=== PATIENT | female | born 1990 | race Caucasian/White ===

== ENCOUNTER 2020-08-10 09:22 | Outpatient (REF) | payer OTHER, SELFPAY | END 2020-08-10 09:23 | disposition home or self-care (01) | LOC: HO.LAB 09:22 | PROVIDERS: Visit Provider Internal Medicine | DX: Z20.828 Contact with and (suspected) exposure to other viral communicable diseases (principal) | CPT/HCPCS: C9803; U0003 ==

== ENCOUNTER 2020-11-30 11:38 | Emergency (ER) | payer OTHER, SELFPAY ==
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
[2020-11-30 11:49] VITALS: BP 106/76; PULSE 88; RESP 16; TEMP 36.9; O2SAT 98; BMI 23.6
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
[2020-11-30] MEDS: Acetaminophen 325 MG TABLET 650 MG PO (12:35)
== END 2020-11-30 14:18 | disposition home or self-care (01) ==
PROVIDERS: Emergency Provider Emergency Medicine Emergency Medical Services; PCP Internal Medicine Medical Oncology
DX: S06.0X0A Concussion without loss of consciousness, initial encounter (principal); S00.83XA Contusion of other part of head, initial encounter; V47.5XXA Car driver injured in collision with fixed or stationary object in traffic accident, initial encounter; W22.11XA Striking against or struck by driver side automobile airbag, initial encounter; Y93.89 Activity, other specified; Y92.414 Local residential or business street as the place of occurrence of the external cause; Y99.8 Other external cause status
CPT/HCPCS: 70450; 71046; 99283; 99284

== ENCOUNTER 2021-10-24 09:53 | Outpatient (REF) | payer OTHER, SELFPAY ==
[2021-10-25 12:24] LABS: BV Int Neg Control Negative (Negative); BV Int Pos Control Positive (Positive)
[2021-10-25 13:05] LABS: CT PCR NOT DETECTED (Not Detect.)
[2021-10-25 13:06] LABS: NG PCR NOT DETECTED (Not Detect.)
[2021-10-30 14:57] LABS: HPV mRNA E6/E7 rflx Not Detected (Not Detected)
== END 2021-10-24 09:54 | disposition home or self-care (01) ==
LOC: HO.LAB 09:53
PROVIDERS: Visit Provider Advanced Practice Midwife
DX: Z01.419 Encounter for gynecological examination (general) (routine) without abnormal findings (principal); Z11.51 Encounter for screening for human papillomavirus (HPV); Z20.2 Contact with and (suspected) exposure to infections with a predominantly sexual mode of transmission
CPT/HCPCS: 87480; 87491; 87510; 87591; 87624; 87660; 88142

== ENCOUNTER 2021-12-19 13:53 | Outpatient (REF) | payer OTHER, SELFPAY | END 2021-12-19 13:54 | disposition home or self-care (01) | LOC: HO.LAB 13:53 | PROVIDERS: Visit Provider Obstetrics & Gynecology | DX: R87.613 High grade squamous intraepithelial lesion on cytologic smear of cervix (HGSIL) (principal) | CPT/HCPCS: 57454; 81025; 88305 ==

== ENCOUNTER → 2022-01-13 15:58 | Outpatient (BNVA) | payer OTHER, SELFPAY | PROVIDERS: Visit Provider Obstetrics & Gynecology | DX: Z13.89 Encounter for screening for other disorder (principal) ==

== ENCOUNTER → 2022-01-28 14:43 | Outpatient (BNVA) | payer OTHER, SELFPAY | PROVIDERS: Visit Provider Obstetrics & Gynecology | DX: R87.613 High grade squamous intraepithelial lesion on cytologic smear of cervix (HGSIL) (principal) | CPT/HCPCS: 99212 ==

== ENCOUNTER 2022-01-31 09:03 | Day surgery (SDC) | payer OTHER, SELFPAY ==
--- NOTE | 2022-01-30 08:29 | HO.ANESPROP2 ---
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 (Acute) Past Medical History Medical History No known health problems Sinus problem Family History Family History Maternal Grandmother Heart disease Surgical History Surgical History Hx of arthroscopy of left knee Social History Social History Alcohol intake: current Alcohol intake frequency: a few times a week Patient Tobacco Use Status: Never used Tobacco Use of substances other than those prescribed or required for medical reasons: No Are you DNR?: No Advance Directives: No Advance Directives Information Provided: Yes Gender identity: Female Meds Allergies Allergy/AdvReac Type Severity Reaction Status Date / Time No Known Allergies Allergy Verified 01/24/22 13:50 Home Medications Medication Instructions Recorded Confirmed Last Taken Type No Known Home Meds 10/24/21 01/24/22 Unknown History Exam Exam Date and Time: January 30, 2022 0829 Assessment and Plan Assessment Anesthesia Assessment: Chart Reviewed Documented by User: Kalina Marques MD 01/31/22 10:46 PMFSH Past Medical History Medical History No known health problems Sinus problem Family History Family History Maternal Grandmother Heart disease Family history of problems with anesthesia: No Surgical History Surgical History Hx of arthroscopy of left knee History of Problems with Anesthesia: No Social History Social History Alcohol intake: current Alcohol intake frequency: a few times a week Patient Tobacco Use Status: Never used Tobacco Use of substances other than those prescribed or required for medical reasons: No Are you DNR?: No Advance Directives: No Advance Directives Information Provided: Yes Gender identity: Female Meds Allergies Allergy/AdvReac Type Severity Reaction Status Date / Time No Known Allergies Allergy Verified 01/24/22 13:50 Home Medications Medication Instructions Recorded Confirmed Last Taken Type No Known Home Meds 10/24/21 01/24/22 Unknown History Exam Height,Weight and Vital Signs: Height 5 ft 2 in Weight 57.606 kg Vital Signs Temp Pulse Resp BP Pulse Ox 01/31/22 09:37 97.8 F 91 18 109/77 96 Pertinent Lab Results Pertinent Lab Results: Lab Results 01/31/22 01/31/22 Range/Units 09:20 09:42 Urine Test NEGATIVE (NEGATIVE) COVID-19 (SELENE) Negative (Negative) COVID-19 Clin Com See Note Airway Mallampati Class: I TM Dist: >3cm Neck ROM: Full Loose/Missing/Broken Teeth: No Heart: RRR Lungs: CTAB Assessment and Plan Assessment Anesthesia Assessment: Anesthesia Plan Discussed Final Anesthetic Review Family History of Problems with Anesthesia: No History of Problems with Anesthesia: No NPO: Yes ASA Class: I Final Preanesthetic Review: No Changes in Pt Med Stat, Meds/Allgs Chart Reviewed, Consent Obtained/Reviewed and Anes Risks/Benef Reviewed Patient Risk: Low Procedure Risk: Low Assessment/Block/Sedation in SS: Assess/Block/Sedation-SS Anesthetic Plan Anesthetic Plan: MAC: Disposition: Standard PACU
[2022-01-31 09:37] VITALS: BP 109/77; PULSE 91; RESP 18; TEMP 36.6; O2SAT 96; BMI 23.2
--- NOTE | 2022-01-31 09:50 | PC.NURSE ---
Patient states COVID positive 01/15, had a headache that day and then everyday after i just felt tired and had alot of phlegm. I haven't had any symptoms since my quarantine ended[01/22]. Patient swabbed and anesthesia Dr Marques aware.
[2022-01-31 09:51] LABS: UPreg QC Valid YES; Urine Pregnancy NEGATIVE (NEGATIVE)
[2022-01-31] MEDS: Lactated Ringers 1,000 ML 50 ML IVCONT (09:58)
[2022-01-31 10:13] LABS: COVID-19 Test Negative (Negative); IDNOW Serial# 16C4AD1C
--- NOTE | 2022-01-31 10:50 | MHC.SHP ---
Pre-Procedural Eval Section A Date of Service: 01/31/22 The patient is an INPATIENT: No Changes since office visit: No Cold of Flu in the past 2 weeks, No New Medical Problems, No Changes in Medication and No Patient answered all questions The History & Physical has been completed within 30 days and I have reviewed it.: Yes Section B Chief Complaint: abd cervical cells Allergies: Allergies Allergy/AdvReac Type Severity Reaction Status Date / Time No Known Allergies Allergy Verified 01/24/22 13:50 Plan Diagnosis/Plan: Unchanged I have reviewed the history and physical and performed a pertinent physical examination on my patient. No changes have occurred unless specified.
--- NOTE | 2022-01-31 11:33 | P.BOP_ITS ---
Brief Operative Note Date of Service: 01/31/22 Pre-op diagnosis: Discrepancy between cytology, HGSIL, and negative pathology Post-op diagnosis: same Procedure: Colposcopy, LEEP cone, top hat endocervical excision, post cone ECC Surgeon: Zaki Avitia MD Anesthesia: MAC Was an Manager Account Management used for this Procedure?: No Estimated blood loss (mL): 0 Pathology: none sent (Cervical cone with 12:00 o'clock suture, top hat endocervix with 12:00 o'clock suture, cone ECC) Condition: stable Disposition: PACU
--- NOTE | 2022-01-31 11:34 | P.OP_ITS ---
Operative Note Operative Note Date of Service: 01/31/22 Narrative: Pre op diagnosis: Discrepancy between cytology, HGSIL, and negative pathology Operation: Colposcopy, Loop electrical excision procedure cone, top hat endocervical excision, post cone ECC Postop diagnosis: the same Quantitative blood loss: 0 cc Surgeon: Zaki Avitia MD, FACOG Digital Advertising Analyst: None Pathology: Cervical cone, top-hat endo cervical excision, endo cervical curettage Complications: none Anesthesia: MAC and Para cervical block Procedure: The patient was put in a dorsal lithotomy position, scrubbed and draped in the usual sterile fashion. A speculum was inserted inside the patient's vagina. The cervix is assessed using the colposcope with acetic acid , no aceto-white were seen, and the squamocolumnar junction was difficult to be visualized. 20 x 10 mm size loop was selected based upon the diameter of the lesion. Lugol solution was used to outline the lesions and area of the transformation zone order to be removed 10 cc of xylocaine with epinephrine were injected submucosally into the surface of the cervix (ectocervix) at the 3, 6, 9, and 12 o'clock positions. The electrosurgical generator is set at 40 anthony on blend 1. The loop is carefully passed simultaneously around and under the transformation zone, in order to ensure excising the transformation zone . The loop was allowed to glide through the cervix from one side to the other, allowing the cutting current to divide the tissue. Since the entire endo cervical canal /transformation zone was is not visualized well endo cervical disease could be beyond the reach of the loop loop electrode additional tissue was excised from this area with a smaller-diameter loop , endo cervical top-hat excision was performed. An endo cervical curettage is performed following completion of excision, and hemostasis is obtained with a Ball electrode or regular tip cautery. At the end, Monsel's solution was applied to the cone bed. The patient tolerated the procedure well and, all instruments were taken out of the patient vaginal cavity, and the patient was transferred to the PACU in stable condition.
[2022-01-31 11:37] VITALS: BP 105/62; PULSE 105; RESP 14; TEMP 36.6; O2SAT 98
[2022-01-31] MEDS: oxyCODONE HCl Immed Release 5 MG TABLET PO (11:48)
[2022-01-31] MEDS: Acetaminophen 325 MG TABLET 650 MG PO (11:49)
[2022-01-31 11:52] VITALS: BP 100/62; PULSE 90; RESP 16; TEMP 36.8; O2SAT 100
== END 2022-01-31 12:25 ==
LOC: HO.SSS 09:04
PROVIDERS: Anesthesiology; Visit Provider Obstetrics & Gynecology
PROC: 0UBC7ZZ Excision of Cervix, Via Natural or Artificial Opening (ICD-10-PCS; CPT 57522; principal; 2022-01-31 11:30)
DX: R87.613 High grade squamous intraepithelial lesion on cytologic smear of cervix (HGSIL) (principal); N72 Inflammatory disease of cervix uteri; Z20.822 Contact with and (suspected) exposure to COVID-19
CPT/HCPCS: 57461; 81025; 87635; 88305; 88307; J1100; J2250; J2405; J3010

== ENCOUNTER 2022-05-20 08:49 | Outpatient (REF) | payer OTHER, SELFPAY ==
[2022-05-20 10:27] LABS: MANUAL DIFF FLAG NO
[2022-05-20 10:46] LABS: Basophils Percent Auto 0.9 % (0-2); Eosinophils Absolute Auto 0.1 X10*3/uL (0.0-0.4); Eosinophils Percent Auto 2.4 % (0-4); Hematocrit 37.5 % (37.0-47.0); Hemoglobin 12.6 g/dl (12.0-16.0); Imm Gran Abs Auto 0.01 X10*3/uL (0.00-0.03); Imm Gran Pct Auto 0.2 % (0.0-0.4); Lymphocytes Percent Auto 43.1 % (20-40); Mean Corpuscular HGB Conc 33.6 g/dl (31.0-35.0); Mean Corpuscular Hemoglobin 30.4 pg (27.0-33.0); Mean Corpuscular Volume 90.6 fL (80.0-98.0); Mean Platelet Volume 10.4 fL (9.4-12.3); Monocytes Absolute Auto 0.4 X10*3/uL (0.1-1.2); Monocytes Percent Auto 7.7 % (2-11); Neutrophils Absolute Auto 2.1 x10*3/uL (2.0-8.3); Neutrophils Percent Auto 45.7 % (45-73); Platelet Count 283 X10*3/uL (160-400); Red Blood Count 4.14 X10*6/uL (4.20-5.50); Red Cell Distribution Width 12.3 % (11.0-16.0); White Blood Count 4.5 X10*3/uL (4.8-10.8)
[2022-05-20 11:01] LABS: Alanine Aminotransferase 17 U/L (0-31); Albumin Level 4.1 g/dL (3.5-5.0); Alkaline Phosphatase 40 U/L (39-117); Anion Gap 12 (12-20); Aspartate Amino Transferase 18 U/L (5-31); Blood Urea Nitrogen 15 mg/dL (9-16); Calcium 8.9 mg/dL (8.4-10.2); Carbon Dioxide 24 mmol/L (22-29); Chloride 105 mmol/L (96-108); Cholesterol 181 mg/dL; Estimated Glomerular Filt Rate > 60; Glucose Fasting 94 mg/dL (60-99); HDL Cholesterol 73 mg/dL; LDL Cholesterol Calculated 98 mg/dl; Potassium 4.4 mmol/L (3.3-5.1); Sodium 137 mmol/L (135-145); Total Protein 6.4 g/dL (6.5-8.0); Triglycerides 54 mg/dL
[2022-05-20 11:48] LABS: Folate 10.5 ng/mL (> or = 4.0); Vitamin B12 254 pg/mL (200-900)
== END 2022-05-20 08:50 | disposition home or self-care (01) ==
LOC: HO.10HDL 08:49
PROVIDERS: Visit Provider Internal Medicine Medical Oncology
DX: Z00.00 Encounter for general adult medical examination without abnormal findings (principal); E53.8 Deficiency of other specified B group vitamins
CPT/HCPCS: 36415; 80053; 80061; 82607; 82746; 85025

== ENCOUNTER 2023-04-30 05:20 | Outpatient (REF) | payer OTHER, SELFPAY ==
--- NOTE | ~2023-04-30 | XR_ITS ---
EXAMINATION: XR RIGHT HIP CLINICAL INFORMATION: Pain. COMPARISON: None available. TECHNIQUE: AP view of the pelvis and and frog-leg lateral view of the right hip were obtained. FINDINGS: No fracture. Hip joint spaces are maintained. Alignment is anatomic. Sacroiliac joints and pubic symphysis are normal. No abnormal soft tissue calcifications. There are pelvic phleboliths. XR/XR hip LT 1V IMPRESSION: Normal right hip radiographs. EXAMINATION: XR LEFT HIP CLINICAL INFORMATION: Pain. COMPARISON: None available. TECHNIQUE: A frog-leg lateral views of the left hip was obtained. FINDINGS: No fracture. Hip joint spaces are maintained. Alignment is anatomic. Sacroiliac joints and pubic symphysis are normal. No abnormal soft tissue calcifications. IMPRESSION: Normal left hip radiographs.
--- NOTE | ~2023-04-30 | XR_ITS ---
EXAMINATION: XR RIGHT HIP CLINICAL INFORMATION: Pain. COMPARISON: None available. TECHNIQUE: AP view of the pelvis and and frog-leg lateral view of the right hip were obtained. FINDINGS: No fracture. Hip joint spaces are maintained. Alignment is anatomic. Sacroiliac joints and pubic symphysis are normal. No abnormal soft tissue calcifications. There are pelvic phleboliths. XR/XR hip RT min 2V IMPRESSION: Normal right hip radiographs. EXAMINATION: XR LEFT HIP CLINICAL INFORMATION: Pain. COMPARISON: None available. TECHNIQUE: A frog-leg lateral views of the left hip was obtained. FINDINGS: No fracture. Hip joint spaces are maintained. Alignment is anatomic. Sacroiliac joints and pubic symphysis are normal. No abnormal soft tissue calcifications. IMPRESSION: Normal left hip radiographs.
== END 2023-04-30 05:21 | disposition home or self-care (01) ==
LOC: HO.HOSX 05:20
PROVIDERS: Visit Provider Orthopaedic Surgery
DX: M70.71 Other bursitis of hip, right hip (principal); M70.72 Other bursitis of hip, left hip
CPT/HCPCS: 73501; 73502; 99202

== ENCOUNTER 2023-04-30 11:23 | Outpatient (AMB) | payer OTHER, SELFPAY ==
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
== END 2023-04-30 12:36 | disposition home or self-care (01) ==
PROVIDERS: Visit Provider Orthopaedic Surgery
DX: M70.71 Other bursitis of hip, right hip (principal); M70.72 Other bursitis of hip, left hip
CPT/HCPCS: 99202

== ENCOUNTER 2023-10-05 14:30 | Outpatient (REF) | payer OTHER, SELFPAY ==
[2023-10-05 15:00] LABS: MANUAL DIFF FLAG NO
[2023-10-05 15:14] LABS: Basophils Percent Auto 0.9 % (0-2); Eosinophils Absolute Auto 0.2 X10*3/uL (0.0-0.4); Hematocrit 37.7 % (37.0-47.0); Hemoglobin 12.7 g/dl (12.0-16.0); Imm Gran Abs Auto 0.01 X10*3/uL (0.00-0.03); Imm Gran Pct Auto 0.2 % (0.0-0.4); Lymphocytes Absolute Auto 2.2 X10*3/uL (1.2-4.9); Lymphocytes Percent Auto 45.7 % (20-40); Mean Corpuscular HGB Conc 33.7 g/dl (31.0-35.0); Mean Corpuscular Volume 89.1 fL (80.0-98.0); Mean Platelet Volume 9.7 fL (9.4-12.3); Monocytes Absolute Auto 0.3 X10*3/uL (0.1-1.2); Monocytes Percent Auto 6.6 % (2-11); Neutrophils Percent Auto 42.6 % (45-73); Platelet Count 290 X10*3/uL (160-400); Red Blood Count 4.23 X10*6/uL (4.20-5.50); Red Cell Distribution Width 12.1 % (11.0-16.0); White Blood Count 4.7 X10*3/uL (4.8-10.8)
[2023-10-05 15:41] LABS: Anion Gap 12 (12-20); Blood Urea Nitrogen 13 mg/dL (9-16); Calcium 9.7 mg/dL (8.4-10.2); Carbon Dioxide 25 mmol/L (22-29); Chloride 107 mmol/L (96-108); Cholesterol 184 mg/dL (<200); Estimated Glomerular Filt Rate > 60; Glucose Random 103 mg/dL (60-115); HDL Cholesterol 70 mg/dL (>40); LDL Cholesterol Calculated 101 mg/dL (<100); Potassium 4.5 mmol/L (3.3-5.1); Sodium 139 mmol/L (135-145); Triglycerides 65 mg/dL (<150)
[2023-10-05 15:53] LABS: Erythrocyte Sedimentation Rate 12 MM/HR (0-20)
== END 2023-10-05 14:31 | disposition home or self-care (01) ==
LOC: HO.LAB 14:30
PROVIDERS: PCP Internal Medicine Medical Oncology; Visit Provider Internal Medicine Medical Oncology
DX: R10.9 Unspecified abdominal pain (principal); R19.7 Diarrhea, unspecified
CPT/HCPCS: 36415; 80048; 80061; 85025; 85652

== ENCOUNTER 2023-10-07 10:38 | Outpatient (REF) | payer OTHER, SELFPAY ==
[2023-10-07 11:37] LABS: CDiff Gene PCR NEGATIVE (Negative)
== END 2023-10-07 10:39 | disposition home or self-care (01) ==
LOC: HO.LNP 10:38
PROVIDERS: Visit Provider Internal Medicine Medical Oncology
DX: R10.9 Unspecified abdominal pain (principal); R19.7 Diarrhea, unspecified
CPT/HCPCS: 87493

== ENCOUNTER 2023-10-28 12:40 | Day surgery (SDC) | payer OTHER, SELFPAY ==
[2023-10-22 13:03] VITALS: BMI 24.6
[2023-10-28 12:56] VITALS: BP 130/78; PULSE 94; RESP 16; TEMP 37.2; O2SAT 100; BMI 24.7
[2023-10-28 13:04] LABS: UPreg QC Valid YES; Urine Pregnancy NEGATIVE (NEGATIVE)
--- NOTE | 2023-10-28 13:13 | P.CONAN_ITS ---
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 (Acute) Potential exposure to STD (Acute) Cervical cancer screening (Acute) Well woman exam with routine gynecological exam (Acute) Past Medical History Medical History (Updated 10/22/23 @ 13:02 by Flores Case RN) No known health problems Family History Family History Maternal Grandmother Heart disease Family history of problems with anesthesia: No Surgical History Surgical History History of loop electrical excision procedure (LEEP) Hx of arthroscopy of left knee History of Problems with Anesthesia: No Social History Social History (Updated 10/22/23 @ 13:03 by Flores Case RN) Alcohol intake: current Alcohol intake frequency: 0-2 drinks per day Patient Tobacco Use Status: Current someday Tobacco user Tobacco use type: Cigarette Smoked in Last 30 Days: Yes Use of substances other than those prescribed or required for medical reasons: Yes Substance Use Frequency: Daily Are you DNR?: No Advance Directives: No Advance Directives Information Provided: Yes Gender identity: Female Meds Allergies Allergy/AdvReac Type Severity Reaction Status Date / Time No Known Allergies Allergy Verified 10/28/23 12:49 Home Medications Medication Instructions Recorded Confirmed Last Taken Type ibuprofen PRN Pain 10/28/23 10/14/23 History Exam Height,Weight and Vital Signs: Height 5 ft 2 in Weight 61.235 kg Last Vital Signs Temp 98.9 F 10/28/23 12:56 Pulse 94 10/28/23 12:56 Resp 16 10/28/23 12:56 BP 130/78 10/28/23 12:56 Pulse Ox 100 10/28/23 12:56 O2 Del Method Room Air 10/28/23 12:56 Pertinent Lab Results Pertinent Lab Results: Laboratory Tests 10/28/23 12:53 Urine Test NEGATIVE Airway Mallampati Class: I TM Dist: >3cm Neck ROM: Full Loose/Missing/Broken Teeth: No Heart: rrr Lungs: cta b/l Assessment and Plan Final Anesthetic Review Family History of Problems with Anesthesia: No History of Problems with Anesthesia: No NPO: Yes ASA Class: II Final Preanesthetic Review: No Changes in Pt Med Stat, Meds/Allgs Chart Reviewed, Consent Obtained/Reviewed and Anes Risks/Benef Reviewed Patient Risk: Intermediate Procedure Risk: Intermediate Anesthetic Plan Anesthetic Plan: MAC:
--- NOTE | 2023-10-28 14:41 | MHC.SHP ---
Pre-Procedural Eval Section A - 24 Hr Update-Section A only Date of Service: 10/28/23 The patient is an INPATIENT: No Changes since office visit: No Cold of Flu in the past 2 weeks, No New Medical Problems, No Changes in Medication and No Patient answered all questions The patient has been examined within 24 hours of the surgical procedure. The History & Physical has been completed within 30 days and I have reviewed it.: Yes Section B - Complete if H&P > 30 days Chief Complaint: Change in bowel habit,rectal bleeding Allergies: Allergies Allergy/AdvReac Type Severity Reaction Status Date / Time No Known Allergies Allergy Verified 10/28/23 12:49 Plan I have reviewed the history and physical and performed a pertinent physical examination on my patient. No changes have occurred unless specified. Time Spent With Patient Time: Total time managing care of this patient today ____ minutes.
[2023-10-28 15:11] VITALS: BP 95/48; PULSE 78; RESP 18; TEMP 36.3; O2SAT 99
[2023-10-28 15:26] VITALS: BP 108/74; PULSE 82; RESP 20; TEMP 36.4; O2SAT 99
--- NOTE | 2023-10-28 16:05 | OP_ITS ---
DATE OF SERVICE: 10/28/2023 SURGEON: Alcides Roa MD INDICATIONS: Rectal bleeding and change in bowel habits. PREOPERATIVE DIAGNOSIS: POSTOPERATIVE DIAGNOSIS: PROCEDURE PERFORMED: Colonoscopy to the terminal ileum with biopsy. ESTIMATED BLOOD LOSS: COMPLICATIONS: ANESTHESIA: Monitored anesthesia care. ASSISTANTS: SPECIMENS: DESCRIPTION OF PROCEDURE: A history and physical performed. The risks and benefits of the procedure were explained to the patient. Informed consent was obtained. The patient was placed in the left lateral decubitus position. The Olympus video colonoscope was introduced into the rectum. After normal digital rectal examination was performed, the Olympus scope was advanced to the cecum. The cecum was identified by transillumination, palpation, and identification of ileocecal valve. Examination was performed. The scope was removed. She tolerated the procedure well and was returned to recovery area in stable condition. FINDINGS: The terminal ileum was examined and appeared normal. The visualized colonic mucosa was normal. The quality of the prep was great. No polyps were identified. There was no evidence of colitis. There was no evidence of ileitis. Biopsies were obtained from the sigmoid randomly to rule out microscopic or collagenous colitis. Retroflexed examination was normal. IMPRESSION: Normal colonoscopy. RECOMMENDATION: 1. Follow up the biopsy results. 2. Screening colonoscopy should begin at age 45 every 10 years for average-risk individuals. MD ARIC Shrestha/ARDEN / [phone]
== END 2023-10-28 15:39 | disposition home or self-care (01) ==
PROVIDERS: Anesthesiology; PCP Internal Medicine Medical Oncology; Visit Provider Internal Medicine Gastroenterology
PROC: 0DJD8ZZ Inspection of Lower Intestinal Tract, Via Natural or Artificial Opening Endoscopic (ICD-10-PCS; CPT 45378; principal; 2023-10-28 13:50)
DX: R19.4 Change in bowel habit (principal); K62.5 Hemorrhage of anus and rectum; F17.210 Nicotine dependence, cigarettes, uncomplicated
CPT/HCPCS: 45380; 81025; 88305; J2704

== ENCOUNTER 2024-05-23 14:18 | Emergency (ER) | payer OTHER, SELFPAY ==
--- NOTE | ~2024-05-23 | XR_ITS ---
EXAMINATION: XR CHEST CLINICAL INFORMATION: Left-sided chest pain. COMPARISON: January 30, 2021 TECHNIQUE: 2 views of the chest were obtained. FINDINGS: The lungs are well expanded. No focal consolidation. No pleural effusion. Cardiac silhouette is within normal limits. XR/XR chest 2V IMPRESSION: No acute abnormality. Electronically signed by: Sher Esqueda MD 05/23/2024 03:55 PM EDT
--- NOTE | 2024-05-23 14:19 | ECG_ITS ---
Test Reason : CHEST PAIN Blood Pressure : / mmHG Vent. Rate : 080 BPM Atrial Rate : 080 BPM P-R Int : 136 ms QRS Dur : 084 ms QT Int : 378 ms P-R-T Axes : 065 058 038 degrees QTc Int : 435 ms Normal sinus rhythm Normal ECG No previous ECGs available Referred By: Ely Leslie Electronically Signed By:THERESE PETERSON
[2024-05-23 14:31] VITALS: BP 133/91; PULSE 84; RESP 20; TEMP 37.2; O2SAT 100; BMI 23.0
--- NOTE | 2024-05-23 14:31 | ED.CHESTPAIN ---
HPI - Chest Pain General Chief Complaint: Chest Pain Stated Complaint: Chest Pain Time Seen by Provider: 05/23/24 15:19 Source: patient and family Mode of arrival: ambulatory Limitations: no limitations History of Present Illness ED Provider: NURA BURRIS narrative: 33 yo female who vapes here with chest pain and feeling like she cannot catch her breath. Notes hx of anxiety but not on medications. No recent travel, procedures, URI, vaccines. Notes she just feels like she cannot catch her breath. She notes she feels like she cannot catch her breath. She is anxious and tearful. The patient notes it all started on Thursday [place]. She does not have any known hx of anything. Patient is with her family no konwn hx of heart issues or dissections. Patient states she just cannot catch her breath MD complaint: chest pain Onset (ago): day(s) (Thursday) Timing of current episode: episodic Prior episodes: No Onset: during rest Pain location: left chest Pain radiation: none Severity: moderate Quality: aching Relieving factors: nothing Exacerbating factors: inspiration Associated symptoms: dyspnea, sense of impending doom and palpitations Treatment prior to arrival: none Related Data Home Medications ?Medication ?Instructions ?Recorded ?Confirmed ibuprofen PRN Pain 10/28/23 Previous Rx's ?Medication ?Instructions ?Recorded hydroxyzine HCl 50 mg tablet 50 mg PO Q8H PRN anxiety #30 tabs 05/23/24 Allergies Allergy/AdvReac Type Severity Reaction Status Date / Time No Known Allergies Allergy Verified 05/23/24 14:34 Review of Systems Review of Systems: Constitutional : No Weight loss, No Fever, No Chills ENT/Mouth : No sore throat, No Rhinorrhea Eyes: No Eye Pain, No Swelling Cardiovascular : pos Chest Pain, pos SOB, no Dyspnea on Exertion, No Orthopnea, No Edema, No Palpitations Respiratory : No Cough, No Sputum Gastrointestinal : no Nausea, No Vomiting, No Diarrhea, No abdominal Pain, No Hematochezia, No Melena Genitourinary : No Dysuria, No Urinary Frequency Musculoskeletal : No joint pain, No Myalgias, No Joint Swelling Skin : No Skin Lesions, No rash Neuro : No Weakness, No Numbness, No Dizziness, No Headache Psych : No Anxiety/Panic, No Depression All other systems reviewed and are negative FOR[facility]LY [facility], [facility] Past Medical History Attestation statement: The following information was validated with the patient. Medical History No known health problems Surgical History History of loop electrical excision procedure (LEEP) Hx of arthroscopy of left knee Family History Family History Maternal Grandmother Heart disease Social History Social History Alcohol intake: current Alcohol intake frequency: 0-2 drinks per day Patient Tobacco Use Status: Current someday Tobacco user Tobacco use type: Cigarette Gender identity: Female Physical Exam Vital Signs: Vital Signs: Last Vital Signs Temp 98.2 F 05/23/24 15:30 Pulse 77 05/23/24 15:30 Resp 22 H 05/23/24 15:30 BP 124/73 05/23/24 15:30 Pulse Ox 100 05/23/24 15:30 O2 Del Method Room Air 05/23/24 15:30 BMI result Body Mass Index 23.0 Appearance: Alert. Oriented X3. No acute distress. appears anxious tearful mild hyperventilation Eyes: Pupils equal, round and reactive to light. ENT: Pharynx normal. Neck: Normal inspection. Neck supple. CVS: Normal heart rate and rhythm. Pulses normal. Respiratory: No respiratory distress. Breath sounds normal. Abdomen: Soft and non-tender. Skin: Skin warm and dry. Normal skin color. Normal skin turgor. Extremities: No lower extremity edema. No calf ttp Neuro: Oriented X 3. No motor deficit. No sensory deficit. Course Course Course Narrative: This is a Rapid Medical Examination (RME) performed by Cassandra Leslie PA-C in triage. Full HPI, ROS, assessment and treatment plan per primary provider in the Main ED. 33 yo female here for eval of light headedness, rapid heart rate and difficulty breathing x weeks. admits chest pain began 4 days ago. reports getting [place] yesterday, felt like her heart was going to beat out of her chest, checked her pulse and it was the 150's. reports sharp pain in her left chest, radiating to her back and pulsating sensation in her neck. hx of anxiety/ panic attacks however this feels different. admits to vaping daily. + very anxious in triage. tremulous. lungs clear. rrr. Plan: labs, ekg, cxr Medications Administered Discontinued Medications Generic Name Dose Route Start Last Admin Trade Name Rogelio PRN Reason Stop Dose Admin Lorazepam 1 mg 05/23/24 15:40 05/23/24 15:55 Lorazepam 1 Mg Tablet PO 05/23/24 15:41 1 mg ONCE ONE Administration Medical Decision Making Medical Decision Making [facility] Narrative: 33 yo female with hx of anxiety, vapes, not on OCPs or medications at this time will need EKG, CXR for PTX/mass/infection, troponin x 1, ddimer given her HR in 150s. The patient is not toxic appearing she has distal pulses intact doubt dissection. She is hyperventilating on exam. No fam hx of dissections reported. PO ativan for anxiety ordered. If negative work up will DC home. No recent infectious complaints, travel, vaccines. Not related to recent URI and not worse with sitting forward doubt pericarditis Differential Diagnosis Differential Diagnoses: The differential diagnosis associated with the presentation includes atypical chest pain, VTE, anxiety, MSK pain, no risk factors for ACS Admission/Observation Consideration of admission/observation: Escalation of care including admission/observation considered CXR negative trop flat ddimer flat EKG nonischemic stable for outpatient management Lab Data [facility] Lab Attestation statement: I reviewed the patient's lab results. 05/23/24 15:47 05/23/24 15:47 Independent Interpretation I performed an independent interpretation of an: EKG and Plain X-Ray (normal) Interpretation: Rate: Rhythm: Beverly: Normal P waves. Normal DEBBIE. Normal QRS complex. ST T wave : qTC: prior studies: The study has been interpreted contemporaneously by me. . Independent Historian Clinical information obtained from an independent historian. History obtained from or confirmed by: Parent External Record Review External record reviewed: Outpatient record Prescription Management I considered prescription management with: Other Discharge Plan Discharge Clinical Impression: Atypical chest pain, Acute dyspnea Patient Disposition: Home, Self-Care Instructions: Chest Pain (ED), Dyspnea (ED) Additional Instructions: today work up including normal testing no anemia normal kidney function O2 sats 100% EKG reassuring test for heart attack troponin negative negative blood clot test CXR normal please return for any worsening symptoms or concerns will start a medication to see if this improves any of your symptoms follow up with your doctor anxiety med is sedating please refrain from operating heavy machinery while taking it EXAMINATION: XR CHEST CLINICAL INFORMATION: Left-sided chest pain. COMPARISON: January 30, 2021 TECHNIQUE: 2 views of the chest were obtained. FINDINGS: The lungs are well expanded. No focal consolidation. No pleural effusion. Cardiac silhouette is within normal limits. XR/XR chest 2V IMPRESSION: No acute abnormality. Prescriptions: New hydroxyzine HCl 50 mg tablet 50 mg PO Q8H PRN (Reason: anxiety) Qty: 30 0RF No Action ibuprofen PRN (Reason: Pain) Stand Alone Forms: Work/School Release Print Language: Japanese
[2024-05-23 15:30] VITALS: BP 124/73; PULSE 77; RESP 22; TEMP 36.8; O2SAT 100
[2024-05-23 15:52] LABS: MANUAL DIFF FLAG NO
[2024-05-23] MEDS: LORazepam 1 MG TABLET PO (15:55)
--- NOTE | 2024-05-23 15:58 | PC.NURSE ---
Pt comes from home for cp/lightheadedness starting Thursday. Pt states she felt a sharp pain mid chest that went straight to her back. She no longer feels the pain she feels more of a pressure/palpitation sensation. Pt visibly anxious upon arrival, stating she feels lightheaded and that her hands hurt. States she has had anxiety attacks like this in the past, is not taking any medication for this. A/ox4, respirations even and unlabored, no increased wob/sob, lung sounds cta bilaterally, s1 and s2 heard, NSR on color television console monitor, HR 70s, abdomen soft, non-tender on palpation. Pt medicated with 1mg PO ativan, pending effectiveness. EKG obtained, labs pending, family at bedside. Call manning within reach, all needs met at this time.
[2024-05-23 15:59] LABS: Prothrombin Time 11.6 SEC (11.1-13.3)
[2024-05-23 16:03] LABS: D Dimer High Sensitivity < 150 NG/ML
--- OUTSIDE RECORDS SUMMARY | 2024-05-23 16:04 | XMS_ITS ---
Author Organization [facility] Address [address] [place] [id number] Care Team Providers Care License Clerk Name Role Phone Dustin Maguire MD Primary Care Provider UnavailAlcides Saha Jr Unavailable [phone] 2 ALLERGIES No Known Allergies REASON FOR VISIT Patient presents today for a severe abdominal pain, diarrhea, blood in stool MEDICATIONS Medication SIG (Take, Route, Frequency, Duration) Notes Start Date End Date Status MiraLax (colon prep) 17 GM/SCOOP mixed with Gatorade or Crystal Light Orally begin at 5:00 p.m. the day before the procedure for 1 day 10/12/2023 Active IMMUNIZATIONS Vaccine Route Administration Date Status Comme nts Influenza Unknown 10/12/2023 Refused SOCIAL HISTORY Tobacco Use: Social History Observation Description Date Details (start date - stop date) Current Smoker NA - NA Sex Assigned At : Social History Observation Description Sex Assigned At Unknown Tobacco Use/Smoking Question Answer Notes Patient is a current smoker Alcohol Screen Question Answer Notes Did you have a drink contain ing alcohol in the past year? Yes How often did you have a dri nk containing alcohol in the past year? 2 to 4 times a month (2 points) How many drinks did you have on a typical day when you were drinking in the past year? 3 or 4 drinks (1 point) How often did you have 6 or more drinks on one occasion in the past year? Never (0 point) Points 3 Interpretation Positive PROBLEMS Problem Type ICD Code Onset Dates Problem Status W/U Status Risk SNOMED Code Notes Problem Rectal bleeding (K62.5) Active confirmed 51055365 Problem Change in bowel movement (R19.8) Active confirmed 98495855 VITAL SIGNS BMI 24.57 kg/m2 10/12/2023 Blood pressure systolic 000 mm Hg 10/12/19 24 Blood pressure diastolic 00 mm Hg 024 Height 5 ft 2 in in 10/12/2023 Temperature 99.1 degrees Fahrenheit 10/12/19 24 Weight 134 lb 6 oz lbs 10/12/2023 Encounters Encounter Location Date Provider Diagnosis [facility] [address] [place] [address] 10/12/2023 Alcides Roa Jr Rectal bleeding K62.5 and Change in bowel movement R19.8 ASSESSMENTS Encounter Date Diagnosis Assessment Notes Treatment Notes Treatment Clinical Notes 10/12/2023 Rectal bleeding (ICD-10 - K62.5) 10/12/2023 Change in bowel movement (ICD-10 - R19.8) PLAN OF TREATMENT Medication Medication Name Sig Start Date Stop Date Notes MiraLax (colon prep) 17 GM/SCOOP mixed with Gatorade or Crystal Light Orally begin at 5:00 p.m. the day before the procedure for 1 day 10/12/2023 Future Test Test Name Order Date COLONOSCOPY 10/12/2023 Next Appt Details Follow Up: 1 Year, Reason: Progress Notes * Examination Category Sub-Category Detail Notes General Examination GENERAL APPEARANCE: in no ac [place] distress HEAD: normocephalic EYES: sclera non-icteric NECK/THYROID: no lymphadenopathy HEART: S1, S2 normal, no mu rmurs CHEST: normal shape and exp ansion LUNGS: clear to auscultatio n bilaterally ABDOMEN: soft, nontender, non distended, bowel sounds present, no organomegaly SKIN: anicteric EXTREMITIES: no clubbing, cyanosi s, or edema PSYCH: cognitive function i ntact ORAL CAVITY: mucosa moist
--- OUTSIDE RECORDS SUMMARY | 2024-05-23 16:04 | XMS_ITS ---
Author Organization Dustin Maguire III, MD Address [address] [place] [address] [place] [address] Care Team Providers Care Warehouse Processor Name Role Phone Dustin Maguire Primary Care Provider [phone] REASON FOR VISIT Rapid palpitations x 4 days, Feeling light head, Dizzy, SOB, body shakes. SOCIAL HISTORY Sex Assigned At : Social History Observation Description Sex Assigned At Female VITAL SIGNS BMI 23.04 kg/m2 05/23/2024 Blood pressure systolic 128 mm Hg 05/23/20 24 Blood pressure diastolic 70 mm Hg 024 Heart Rate 94 /min 05/23/2024 Height 62 in 05/23/2024 Temperature 97.3 degrees Fahrenheit 05/23/20 24 Weight 126 lbs 05/23/2024 Encounters Encounter Location Date Provider Diagnosis Dustin Maguire III, MD [address] [place] [address] [place] [phone] 05/23/2024 Dustin Maguire PLAN OF TREATMENT Next Appt Details Provider Name:Dustin Maguire, 06/23/2024 09:45:00 AM, [address] [place] [address] [place], [phone], Progress Notes * Examination Category Sub-Category Detail Notes General Examination GENERAL APPEARANCE: pleasant , well nourished, well developed, in no acute distress, calm and relaxed HEAD: atraumatic, normocep halic EYES: eomi, perrla, anicte harleen, conjugate EARS: normal NOSE: septum intact NECK/THYROID: no jugular venous di stention, no carotid bruit, thyroid normal HEART: no clicks, gallops, murmurs, or rubs, regular rhythm, S1, S2 normal, no s3, or vascular bruits LUNGS: clear to auscultatio n ABDOMEN: bowel sounds normal, no ascites, no organomegaly, no mass NEUROLOGIC: alert and oriented, cranial nerves 2-12 grossly intact, deep tendon reflexes 2+ symmetrical, motor strength normal upper and lower extremities, sensory exam intact SKIN: no suspicious lesion s, anicteric PERIPHERAL PULSES: normal BREASTS: no masses palpable b ilaterally MUSCULOSKELETAL: extremities unremark able, no clubbing, cyanosis or edema LYMPH NODES: no enlarged lymph no sera,spleen normal RECTAL EXAM: not examined PSYCH: alert, oriented ORAL CAVITY: normal, unremarkable History and Physical Notes * HPI (History of Present Illness) Category Sub-Category Detail Notes COVID-19 Screening Questions Have you expe rienced fever, chills, cough, sore throat, shortness of breath, difficulty breathing, muscle aches, loss of taste or smell?: No Have you been exposed to the virus with n the last 10 days?: No Have you travelled internationally in e last 10 days?: No Have you been exposed to COVID-19 in the past?: Yes
--- OUTSIDE RECORDS SUMMARY | 2024-05-23 16:04 | XMS_ITS | Patient Health Record ---
Author Organization [facility] Address [address] [place] [address] Care Team Providers Care Automobile Radio Repairer Name Role Phone Ting VEGA, Dustin Primary Care Provider Alcides Alicea Jr Unavailable [phone] ALLERGIES No Known Allergies RESULTS Component Value Reference Range Notes Ur Preg Test Reviewed date:10/28/2023 04:06:46 PM Interpretation: Performing Lab:[facility], [address] [place] [phone] Notes/Report: Urine NEGATIVE NEGATIVE This test was developed to detect early . False negative results may occur after the 5th - 7th week of when using this test method. If clinically indicated, consider a serum hCG. Pathology Reviewed date:11/02/2023 08:20:05 AM Interpretation: Performing Lab:[facility], [address] [place] [phone] Notes/Report: REASON FOR REFERRAL No Information MEDICATIONS Medication SIG (Take, Route, Frequency, Duration) [...] Notes Problem Rectal bleeding (K62.5) Active confirmed 99912213 Problem Change in bowel movement (R19.8) Active confirmed [id number] VITAL SIGNS Temperature 99.1 degrees Fahrenheit 10/12/2023 Blood pressure diastolic 00 mm Hg 10/12/2023 Height 5 ft 2 in in 10/12/2023 Blood pressure systolic 000 mm Hg 10/12/2023 Weight 134 lb 6 oz lbs 10/12/2023 BMI 24.57 kg/m2 10/12/2023 Encounters Encounter Location Date Provider Diagnosis [facility] [address] [place] [phone] 10/28/2023 Alcides Roa Jr Rectal bleeding K62.5 and Change in bowel movement R19.8 [facility] [address] [place] [phone] 10/12/2023 Alcides Roa Jr Rectal bleeding K62.5 and Change in bowel movement R19.8 [facility] [address] [place] [phone] 10/09/2023 Alcides Roa Jr [facility] [address] [place] [phone] 11/02/2023 Alcides Roa Jr ASSESSMENTS Encounter Date Diagnosis Assessment Notes Treatment Notes Treatment Clinical Notes 10/28/2023 Rectal bleeding (ICD-10 - K62.5) 10/28/2023 Change in bowel movement (ICD-10 - R19.8) 10/12/2023 Rectal bleeding (ICD-10 - K62.5) 10/12/2023 Change in bowel movement (ICD-10 - R19.8) PLAN OF TREATMENT Future Test Test Name Order Date COLONOSCOPY 10/12/2023 Insurance Providers Payer Name Payer Address Payer Phone Subscriber Number Group Number Insured Name Patient Relationship to Insured Coverage Start Date Coverage End Date [facility] [address] [place], [place] [id number] [address] [phone] [id number] NOLA MEZA Self - patient is the insured MEDICAL (GENERAL) HISTORY Surgical History Surgery Date(Month/Year) Arthroscopy/synovectomy, left knee 2011 [facility] 01/26
--- OUTSIDE RECORDS SUMMARY | 2024-05-23 16:04 | XMS_ITS ---
Author Organization Dustin Maguire III, MD Address [address] [place] [address] [place] [address] Care Team Providers Care Network Systems Engineer Name Role Phone Dustin Maguire Primary Care Provider ALLERGIES Allergen (clinical drug ingredient) Drug/Non Drug Allergy documented on EMR Reaction Allergy Type Onset Date Status Adhesive Unknown Allergy Active REASON FOR VISIT Abdominal pain, Recent hematochezia SOCIAL HISTORY Tobacco Use: Social History Observation Description Date Details (start date - stop date) Former Smoker NA - NA Sex Assigned At : Social History Observation Description Sex Assigned At Female Tobacco Use/Smoking Question Answer Notes Patient is a former smoker How long has it been since y ou last smoked? 6-12 months Additional Findings: Tobacco User Light cigarett e smoker ((1-9 cigs/day) Additional Findings: Tobacco Non-User Current no n-smoker VITAL SIGNS BMI 25.24 kg/m2 10/29/2023 Height 62 in 10/29/2023 Weight 138 lbs 10/29/2023 Encounters Encounter Location Date Provider Diagnosis Dustin Maguire III, MD [address] [place] [address] [place] [address] 10/29/2023 Dustin Maguire Former smoker Z87.89 1 ; Abdominal pain R10.9 ; Trochanteric bursitis M70.60 and Synovial plica of left knee M67.52 ASSESSMENTS Encounter Date Diagnosis Assessment Notes Treatment Notes Treatment Clinical Notes 10/29/2023 Former smoker (ICD-10 - Z87.891) She no longer smokes cigarettes. She seems highly motivated to remain abstinent. 10/29/2023 Abdominal pain (ICD-10 - R10.9) The colonoscopy was unremarkable. She has had no further bleeding. She continues to have intermittent crampy abdominal pain. We are awaiting the biopsies done randomly in the colon. 10/29/2023 Trochanteric bursitis (ICD-10 - M70.60) She was referred to orthopedics to try an injection. She will use ibuprofen and a heating pad until then. 10/29/2023 Synovial plica of left knee (ICD-10 - M67.52) She had surgery in the past for this problem which is now resolved. Both kidneys are functioning normally and without complaint. The surgery was done at [facility] by Dr. Flor. PLAN OF TREATMENT Next Appt Details Follow Up: 6 Weeks, Reason: Office visit Provider Name:Dustin Ronquillone, 06/23/2024 09:45:00 AM, [address] [place] [address], [facility] [address], [place], [address], History and Physical Notes * HPI (History of Present Illness) Category Sub-Category Detail Notes [facility]:: {...} [address] [place] [address] [address] [facility] [address] Location of patient:: address listed in demographics for today's visit Patient identification confirmed using:: Name, Telehealth method:: Telephone only. Cecilia ent not visible to care provider. Consent:: Patient verbally c onsented to treatment, Patient verbally consented to billing insurance company, Patient informed of any privacy concerns related to method of visit Total time spent with patient (mins): 15
--- OUTSIDE RECORDS SUMMARY | 2024-05-23 16:04 | XMS_ITS ---
Author Organization Dustin Maguire III, MD Address [address] [place] [address] [place] [address] Care Team Providers Care Geneticist Name Role Phone Dustin Maguire Primary Care Provider [phone] ALLERGIES Allergen (clinical drug ingredient) Drug/Non Drug Allergy documented on EMR Reaction Allergy Type Onset Date Status Adhesive Unknown Allergy Active REASON FOR VISIT annual exam SOCIAL HISTORY Tobacco Use: Social History Observation [...] Additional Findings: Tobacco Non-User Current no n-smoker Encounters Encounter Location Date Provider Diagnosis Dustin Maguire III, MD [address] [place] [address] [place] [address] 01/20/2024 Dustin Maguire PLAN OF TREATMENT Next Appt Details Provider Name:Dustin Maguire, 06/23/2024 09:45:00 AM, [address] [place] [address] [place], [address], Progress Notes * Examination Category Sub-Category Detail [...] been exposed to COVID-19 in the past?: No
--- OUTSIDE RECORDS SUMMARY | 2024-05-23 16:04 | XMS_ITS | Patient Health Record ---
Author Organization Dustin Maguire III, MD Address [address] [place] [address] [place] [address] Care Team Providers Care Hand Inserter Operator Name Role Phone Dustin Maguire Primary Care Provider ALLERGIES Allergen (clinical drug ingredient) Drug/Non Drug Allergy documented on EMR Reaction Allergy Type Onset Date Status Adhesive Unknown Allergy Active RESULTS Component Value Reference Range Notes Lipid Panel Reviewed date:10/09/2023 09:37:38 AM Interpretation: Performing Lab:[facility], [address] [place] [phone] Notes/Report: Triglycerides 65 <150 mg/dL Desirable Triglyceride: less than 150 mg/dL Borderline High Triglyceride 150-199 mg/dL High Triglyceride: 200-499 mg/dL Very High Triglyceride: greater than or equal to 5OO mg/dL Cholesterol 184 <200 mg/dL Desirable Cholesterol: less than 200 mg/dL Borderline High Cholesterol: 200-239 mg/dL High Cholesterol: greater than 239 mg/dL LDL Cholesterol Calculated 101 <100 mg/dL Desirable LDL: less than 100 mg/dL Near Optimal/Above Optimal LDL: 110-129 mg/dL Borderline High LDL: 130-159 mg/dL High LDL: 160-189 mg/dL Very High LDL: greater than or equal to 190 mg/dL HDL Cholesterol 70 >40 mg/dL Desirable HDL: greater than 40 mg/dL Note: This HDL assay may give artificially low results in patients with liver disease. Complete Blood Count Auto Di ff Reviewed date:10/09/2023 09:37:38 AM Interpretation: Performing Lab:[facility], [address] [place] [phone] Notes/Report: White Blood Count 4.7 4.8-10.8 X10*3/uL Red Blood Count 4.23 4.20-5.50 X10*6/uL Hemoglobin 12.7 12.0-16.0 g/dl Hematocrit 37.7 37.0-47.0 % Mean Corpuscular Volume 89.1 80.0-98.0 fL Mean Corpuscular Hemoglobin 30.0 27.0-33.0 pg Mean Corpuscular HGB Conc 33.7 31.0-35.0 g/dl Red Cell Distribution Width 12.1 11.0-16.0 % Platelet Count 290 160-400 X10*3/uL Mean Platelet Volume 9.7 9.4-12.3 fL Neutrophils Percent Auto 42.6 45-73 % Imm Gran Pct Auto 0.2 0.0-0.4 % Lymphocytes Percent Auto 45.7 20-40 % Monocytes Percent Auto 6.6 2-11 % Eosinophils Percent Auto 4.0 0-4 % Basophils Percent Auto 0.9 0-2 % NRBC Pct Auto 0.0 0.0-0.2 /100WBC Neutrophils Absolute Auto 2.0 2.0-8.3 x10*3/u L Imm Gran Abs Auto 0.01 0.00-0.03 X10*3/uL Lymphocytes Absolute Auto 2.2 1.2-4.9 X10*3/u L Monocytes Absolute Auto 0.3 0.1-1.2 X10*3/uL Eosinophils Absolute Auto 0.2 0.0-0.4 X10*3/u L Basophils Absolute Auto 0.0 0.0-0.2 X10*3/uL NRBC Abs Auto 0.000 0.0-0.012 X10*3/uL Erythrocyte Sedimentation Ra te Reviewed date:10/09/2023 09:37:38 AM Interpretation: Performing Lab:[facility], [address] [place] [phone] Notes/Report: Erythrocyte Sedimentation Rate 12 0-20 MM/HR Patients with polycythemia and many hemoglobin abnormalities may have depressed sed rates whereas patients with anemia may have elevated sed rates. Basic Metabolic Panel Reviewed date:10/09/2023 09:37:38 AM Interpretation: Performing Lab:[facility], [address] [place] [phone] Notes/Report: Sodium 139 135-145 mmol/L Potassium 4.5 3.3-5.1 mmol/L Chloride 107 96-108 mmol/L Carbon Dioxide 25 22-29 mmol/L Anion Gap 12 12-20 Blood Urea Nitrogen 13 9-16 mg/dL Creatinine 0.73 0.5-1.4 mg/dL Estimated Glomerular Filt Rate > 60 NOTE: For -Hungarian individuals, multiply the result by 1.210. Chronic Kidney Disease: Estimated GFR < 60 mL/min/1.73m2 Severe Kidney Disease: Estimated GFR < 15 mL/min/1.73m2 Glucose Random 103 60-115 mg/dL Calcium 9.7 8.4-10.2 mg/dL CDiff Gene PCR Reviewed date:10/09/2023 09:37:38 AM Interpretation: Performing Lab:[facility], [address] [place] [phone] Notes/Report: CDiff Gene PCR NEGATIVE Negative If C. difficile strongly suspected despite one negative test, a second test may be sent vs. empiric treatment for C. difficile infection. Ur Preg Test Reviewed date:10/29/2023 08:16:58 PM Interpretation: Performing Lab:[facility], [address] [place] [phone] Notes/Report: Urine NEGATIVE NEGATIVE This test was developed to detect early . False negative results may occur after the 5th - 7th week of when using this test method. If clinically indicated, consider a serum hCG. Pathology Reviewed date:11/15/2023 04:06:01 PM Interpretation: Performing Lab:[facility], [address] [place] [phone] Notes/Report: XR chest 2V (Not yet reviewe d by provider) Interpretation: Performing Lab: Notes/Report: [address] [place] [address] XRay Report Signed Patient: Molly Gold MR#: [id number] [birth year] Acct:[id number] Age/Sex: 33 / F ADM Date: 05/23/24 Loc: HO.ED Attending Dr: Ordering Physician: Ely Leslie Date of Service: 05/23/24 Procedure(s): XR chest 2V Accession Number(s): [id number] cc: Dustin Maguire MD; Ely Leslie EXAMINATION: XR CHEST CLINICAL INFORMATION: Left-sided chest pain. COMPARISON: January 30, 2021 TECHNIQUE: 2 views of the chest were obtained. FINDINGS: The lungs are well expanded. No focal consolidation. No pleural effusion. Cardiac silhouette is within normal limits. XR/XR chest 2V IMPRESSION: No acute abnormality. Electronically signed by: Sher Esqueda MD 05/23/2024 03:55 PM EDT Dictated By: Abner Esqueda MD Signed By: <Electronically signed by Abner Esqueda MD in OV> 05/23/24 1555 DD/ 1435 TD/TT: 05/23/24 1441 Budget Technician: REASON FOR REFERRAL Reason Urgent Appointment N eeded Severe Abdominal Pain x 4 weeks Diarrhea x4 months Blood in Stool x2 months Family History of Ulcer Colitis Diagnosis 1 Abdominal pain (R10. 9) Diagnosis 2 Diarrhea (R19.7) Diagnosis 3 Microscopic colitis, unspecified (K52.839) Referral Organization Dustin Maguire III, MD Referring Provider First Name Dustin Referring Provider Last Name Ting Referring Provider Speciality Internal M edicine Referred Provider Alcides Roa Referred Provider Specialty Gastroentero logy General Notes Audra Shah 2023 02:10:54 PM EST > Faxed Referral., Audra Shah 10/07/2023 10:09:46 AM EST > Referral received and was sent to Dr. Roa to see when they can get patient in [place] for an appointment Referral Priority Stat Referral Appointment Date 10/28/2023 IMMUNIZATIONS Vaccine Route Administration Date Status Comme nts IPV Unknown 02/07/1991 Administered IPV Unknown 04/28/1991 Administered Tetanus and Diphtheria Toxoids Adsorbed IM Intramuscular 08/18/2022 Administered IPV Unknown 06/21/1992 Administered IPV Unknown 07/04/1995 Administered DTaP Unknown 02/07/1991 Administered DTaP Unknown 03/28/1991 Administered DTaP Unknown 06/28/1991 Administered DTaP Unknown 06/21/1992 Administered DTaP Unknown 07/04/1995 Administered MMR Unknown 03/12/1992 Administered MMR Unknown 07/04/1995 Administered Hib Unknown 02/07/1991 Administered Hib Unknown 04/28/1991 Administered Hib Unknown 06/28/1991 Administered Hepatitis B Unknown 03/29/2002 Administered Hepatitis B Unknown 05/04/2003 Administered Hepatitis B Unknown 03/01/2004 Administered Tetanus and Diphtheria Toxoids Adsorbed Unknown 01/11/2004 Administered Meningococcal (MCV4) Unknown 06/11/2007 Administered Tdap Unknown 10/11/2008 Administered SOCIAL HISTORY Tobacco Use: Social History Observation [...] Additional Findings: Tobacco Non-User Current no n-smoker Alcohol Screen Question Answer Notes Did you have a drink contain ing alcohol in the past year? Yes How often did you have a dri nk containing alcohol in the past year? 4 or more times a week (4 points) How many drinks did you have on a typical day when you were drinking in the past year? 1 or 2 drinks (0 point) How often did you have 6 or more drinks on one occasion in the past year? Never (0 point) Points 4 Interpretation Positive PROBLEMS Problem Type ICD Code Onset Dates Problem Status W/U Status Risk SNOMED Code Notes Problem Former smoker (Z87.891) Active confirmed 7038010 She no longer smokes cigarettes. She seems highly motivated to remain abstinent. Problem Costochondritis (M94.0) Active confirmed 53840451 This has resolved in the past and not returned. Problem Trochanteric bursitis (M70.60) Active confirmed Trochanter ic bursitis (5266436) She was referred to orthopedics to try an injection. She will use ibuprofen and a heating pad until then. Problem Childhood asthma without complication, unspecified asthma severity, unspecified whether persistent (J45.909) Active confirmed 541265970 She has not had asthma as an adult. Problem Synovial plica of left knee (M67.52) Active confirmed 299488776147774 She had surgery in the past for this problem which is now resolved. Both kidneys are functioning normally and without complaint. The surgery was done at [facility] by Dr. Flor. VITAL SIGNS Heart Rate 94 /min 05/23/2024 Temperature 97.3 degrees Fahrenheit 05/23/2024 Blood pressure diastolic 70 mm Hg 05/23/2024 Height 62 in 05/23/2024 Blood pressure systolic 128 mm Hg 05/23/2024 Weight 126 lbs 05/23/2024 BMI 23.04 kg/m2 05/23/2024 Encounters Encounter Location Date Provider Diagnosis Dustin Maguire III, MD [address] [place] [address] [place] [phone] 08/14/2023 Dustin Maguire III, MD [address] [place] [address] [place] [address] 01/20/2024 Dustin Maguire III, MD [address] [place] [address] [place] [address] 10/23/2023 Dustin Maguire Former smoker Z87.89 1 ; Trochanteric bursitis M70.60 ; Synovial plica of left knee M67.52 ; Diarrhea R19.7 and Abdominal pain R10.9 Dustin Maguire III, MD [address] [place] [address] [place] [address] 10/05/2023 Dustin Maguire Abdominal pain R10.9 ; Diarrhea R19.7 ; Former smoker Z87.891 ; Trochanteric bursitis M70.60 and Underweight R63.6 Dustin Maguire III, MD [address] [place] [address] [place] [address] 05/23/2024 Dustin Maguire III, MD [address] [place] [address] [place] [address] 10/09/2023 Dustin Maguire Abdominal pain R10.9 ; Former smoker Z87.891 and Childhood asthma without complication, unspecified asthma severity, unspecified whether persistent J45.909 Dustin Maguire III, MD [address] [place] [address] [place] [phone] 10/29/2023 Dustin Maguire Former smoker Z87.89 1 ; Abdominal pain R10.9 ; Trochanteric bursitis M70.60 and Synovial plica of left knee M67.52 ASSESSMENTS Encounter Date Diagnosis Assessment Notes Treatment Notes Treatment Clinical Notes 10/23/2023 Former smoker (ICD-10 - Z87.891) She no longer smokes cigarettes. She seems highly motivated to remain abstinent. 10/23/2023 Trochanteric bursitis (ICD-10 - M70.60) She was referred to orthopedics to try an injection. She will use ibuprofen and a heating pad until then. 10/05/2023 Abdominal pain (ICD-10 - R10.9) Abdomen examination today was benign. The pain is not related to eating. Most likely causes colitis.Comprehensi ve bloood work has been ordered and she will have consultation gastroenterology. She will likely need a colonoscopy 10/05/2023 Diarrhea (ICD-10 - R19.7) She is going to use Imodium for the time being until a definitive diagnosis can be made. 10/09/2023 Former smoker (ICD-10 - Z87.891) She no longer smokes cigarettes. She seems highly motivated to remain abstinent. 10/09/2023 Abdominal pain (ICD-10 - R10.9) Her blood work was not remarkable. The pain is slightly better. A GI consultation is pending. 10/29/2023 Former smoker (ICD-10 - Z87.891) She no longer smokes cigarettes. She seems highly motivated to remain abstinent. 10/29/2023 Abdominal pain (ICD-10 - R10.9) The colonoscopy was unremarkable. She has had no further bleeding. She continues to have intermittent crampy abdominal pain. We are awaiting the biopsies done randomly in the colon. 10/23/2023 Synovial plica of left knee (ICD-10 - M67.52) She had surgery in the past for this problem which is now resolved. Both kidneys are functioning normally and without complaint. The surgery was done at [facility] by Dr. Flor. 10/05/2023 Former smoker (ICD-10 - Z87.891) She no longer smokes cigarettes. She seems highly motivated to remain abstinent. 10/09/2023 Childhood asthma without complication, unspecified asthma severity, unspecified whether persistent (ICD-10 - J45.909) She has not had asthma as an adult. 10/29/2023 Trochanteric bursitis (ICD-10 - M70.60) She was referred to orthopedics to try an injection. She will use ibuprofen and a heating pad until then. 10/23/2023 Diarrhea (ICD-10 - R19.7) She is going to use Imodium for the time being until a definitive diagnosis can be made. 10/05/2023 Trochanteric bursitis (ICD-10 - M70.60) She was referred to orthopedics to try an injection. She will use ibuprofen and a heating pad until then. 10/29/2023 Synovial plica of left knee (ICD-10 - M67.52) She had surgery in the past for this problem which is now resolved. Both kidneys are functioning normally and without complaint. The surgery was done at [facility] by Dr. Flor. 10/23/2023 Abdominal pain (ICD-10 - R10.9) Her blood work remains unremarkable. She is going to have colonoscopy with Dr. Roa at [facility] October 28, 2023. She wwill be seen back in the office thereafter. 10/05/2023 Underweight (ICD-10 - R63.6) Her weight is unchanged from the past and will be carefully followed. We discussed adequate nutrition today. PLAN OF TREATMENT Pending Test Test Name Order Date URINE DIP STICK 05/13/2022 BASIC METABOLIC PROFILE RANDOM 4 PROFILE, FASTING (COMPREHENSIVE METABOLI C) 05/13/2022 PROFILE, FASTING (COMPREHENSIVE METABOLI C) 05/08/2021 PROFILE, FASTING (COMPREHENSIVE METABOLI C) 11/11/2019 LIPID PANEL 11/11/2019 B12 05/13/2022 CBC w DIFF 05/13/2022 CBC w DIFF 05/08/2021 CBC w DIFF 11/11/2019 SED RATE (ESR) 10/05/2023 CLOSTRIDIUM DIFF TOXIN A&B (C DIFF) 09/08 PAP SMEAR (THIN PREP) 03/19/2020 CBC WITH AUTO DIFF 10/05/2023 SARS COV2 RNA RT PCR 08/01/2020 Lipid Panel 05/08/2021 XR chest 2V 05/23/2024 Next Appt Details Provider Name:Dustin Maguire, 06/23/2024 09:45:00 AM, [address], [address], [place], [address], Insurance Providers Payer Name Payer Address Payer Phone Subscriber Number Group Number Insured Name Patient Relationship to Insured Coverage Start Date Coverage End Date [address] [place] [phone] [id number] Molly Gold Self - patient is the insured MEDICAL (GENERAL) HISTORY Medical History History ICD Code childhood asthma fractured fingers childhood softball left knee injury, surgery [facility] costochondritis November 2019 former smoker Urinary tract infection July 2021 Right trochanteric bursitis Surgical History Surgery Date(Month/Year) leap procedure C 02/2022 digital fractures, softball dental extractions left knee surgery, [facility] Tonio badillo, anterior synovial plica
--- OUTSIDE RECORDS SUMMARY | 2024-05-23 16:04 | XMS_ITS ---
Author Organization [facility] Address [address] [place] [address] Care Team Providers Care Mortgage Funder Name Role Phone Dustin Maguire MD Primary Care Provider Unavailab Alcides Valdez Jr Unavailable [phone] REASON FOR VISIT pathology Encounters Encounter Location Date Provider Diagnosis [facility] [address] [place] [phone] 11/02/2023 Alcides Roa Jr PLAN OF TREATMENT No Information
--- OUTSIDE RECORDS SUMMARY | 2024-05-23 16:04 | XMS_ITS ---
Author Organization [facility] Address [address] [place] [address] Care Team Providers Care Toll Line Inspector Name Role Phone Dustin Maguire MD Primary Care Provider Unavailab Alcides Valdez Jr Unavailable REASON FOR VISIT rectal bleeding,change in bowel habits Encounters Encounter Location Date Provider Diagnosis [facility] Outpatient [address] [place] [phone] 10/28/2023 Alcides Roa Jr Rectal bleeding K62.5 and Change in bowel movement R19.8 ASSESSMENTS Encounter Date Diagnosis Assessment Notes Treatment Notes Treatment Clinical Notes 10/28/2023 Rectal bleeding (ICD-10 - K62.5) 10/28/2023 Change in bowel movement (ICD-10 - R19.8) PLAN OF TREATMENT No Information
[2024-05-23 16:14] LABS: Alanine Aminotransferase 19 U/L (0-31); Albumin Level 4.7 g/dL (3.5-5.0); Alkaline Phosphatase 48 U/L (39-117); Anion Gap 16 (12-20); Aspartate Amino Transferase 22 U/L (5-31); Bilirubin Total 0.5 mg/dL (0.0-1.0); Blood Urea Nitrogen 10 mg/dL (9-16); Carbon Dioxide 21 mmol/L (22-29); Chloride 108 mmol/L (96-108); Creatinine Clr Calc Pharmacy 83.2; Estimated Glomerular Filt Rate > 60; Glucose Random 100 mg/dL (60-115); Lipase 24 U/L (8-78); Magnesium 1.6 mg/dL (1.6-2.6); Potassium 3.8 mmol/L (3.3-5.1); Sodium 141 mmol/L (135-145); Total Protein 7.4 g/dL (6.5-8.0)
[2024-05-23 16:15] LABS: Basophils Absolute Auto 0.1 X10*3/uL (0.0-0.2); Basophils Percent Auto 0.9 % (0-2); Eosinophils Absolute Auto 0.1 X10*3/uL (0.0-0.4); Eosinophils Percent Auto 1.3 % (0-4); Hematocrit 38.4 % (37.0-47.0); Hemoglobin 13.5 g/dl (12.0-16.0); Imm Gran Abs Auto 0.01 X10*3/uL (0.00-0.03); Imm Gran Pct Auto 0.2 % (0.0-0.4); Lymphocytes Absolute Auto 1.7 X10*3/uL (1.2-4.9); Lymphocytes Percent Auto 32.2 % (20-40); Mean Corpuscular HGB Conc 35.2 g/dl (31.0-35.0); Mean Corpuscular Hemoglobin 31.8 pg (27.0-33.0); Mean Corpuscular Volume 90.4 fL (80.0-98.0); Monocytes Absolute Auto 0.5 X10*3/uL (0.1-1.2); Monocytes Percent Auto 9.5 % (2-11); Neutrophils Percent Auto 55.9 % (45-73); Platelet Count 312 X10*3/uL (160-400); Red Blood Count 4.25 X10*6/uL (4.20-5.50); Red Cell Distribution Width 11.8 % (11.0-16.0); White Blood Count 5.4 X10*3/uL (4.8-10.8)
[2024-05-23 16:20] LABS: HCG Quantitative < 2 mIU/mL; Troponin-I High Sensitivity < 2.7 ng/L (<3.5-17.0)
[2024-05-23 16:36] VITALS: BP 124/73; PULSE 77; RESP 22; TEMP 36.8; O2SAT 100
[2024-05-23 16:37] VITALS: BP 124/73; PULSE 77; RESP 22; TEMP 36.8; O2SAT 100
== END 2024-05-23 16:40 | disposition home or self-care (01) ==
PROVIDERS: Physician Assistant Medical; Emergency Provider Emergency Medicine; PCP Internal Medicine Medical Oncology
DX: R07.89 Other chest pain (principal); R06.02 Shortness of breath; R00.2 Palpitations; R10.2 Pelvic and perineal pain; Z79.899 Other long term (current) drug therapy
CPT/HCPCS: 36415; 71046; 80053; 83690; 83735; 84484; 84702; 85025; 85379; 85610; 93005; 99284; 99285

== ENCOUNTER 2025-02-03 21:33 | Emergency (ER) | payer OTHER, SELFPAY ==
[2025-02-03 21:37] VITALS: BP 122/73; PULSE 117; RESP 20; TEMP 36.6; O2SAT 99; BMI 25.2
[2025-02-03 21:51] LABS: MANUAL DIFF FLAG NO
--- NOTE | 2025-02-03 21:55 | ED.ABDPAIN ---
HPI - Abdominal Pain General Chief Complaint: Abdominal Pain Stated Complaint: abd pain Time Seen by Provider: 02/03/25 21:50 Source: patient and old records reviewed Mode of arrival: ambulatory Limitations: no limitations History of Present Illness ED Provider: NURA BURRIS narrative: 34 yo female with PMH of anxiety who notes she woke up today not feeling great with some upper abdominal pain then throughout the day it worsened. She ate a subway sub and then tried to have 2 beers but couldn't do it. She started to have n/v/d. Her pain is severe now. She denies fevers, GIB symptoms, she notes no recent travel or abx use. She denies having this before. MD elicited complaint: abdominal pain Pertinent past history: none Onset (ago): day(s) (1) Pain Consistency: constant Location: epigastric Severity: severe Related Data Home Medications ?Medication ?Instructions ?Recorded ?Confirmed ibuprofen PRN Pain 10/28/23 Previous Rx's ?Medication ?Instructions ?Recorded hydroxyzine HCl 50 mg tablet 50 mg PO Q8H PRN anxiety #30 tabs 05/23/24 famotidine 20 mg tablet (Pepcid) 20 mg PO DAILY PRN abdominal 02/04/25 discomfort #30 tabs lorazepam 1 mg tablet (Ativan) 1 mg PO BID PRN nausea and 02/04/25 vomiting #6 tabs ondansetron 4 mg disintegrating 4 mg PO Q8H PRN nausea and 02/04/25 tablet vomiting #20 tabs Allergies Allergy/AdvReac Type Severity Reaction Status Date / Time No Known Allergies Allergy Verified 02/03/25 21:40 Review of Systems Review of Systems Constitutional : No Weight loss, No Fever, No Chills ENT/Mouth : No sore throat, No Rhinorrhea Eyes: No Swelling, No Redness Cardiovascular : No Chest Pain, No SOB, NoEdema Respiratory : No Cough, No Sputum, No Wheezing Gastrointestinal : Positive Nausea, Positive Vomiting, positive Diarrhea, positive abdominal Pain, No Hematochezia, No Melena Genitourinary : No Dysuria, No Urinary Frequency, No Hematuria, No Urgency Musculoskeletal : No joint pain, No Myalgias, No Joint Swelling Skin : No Skin Lesions, No rash All other systems reviewed and are negative. [facility] Past Medical History Attestation statement: The following information was validated with the patient. Source: old records reviewed Medical History No known health problems Surgical History History of loop electrical excision procedure (LEEP) Hx of arthroscopy of left knee Family History Family History Maternal Grandmother Heart disease Social History Social History Alcohol intake: current Alcohol intake frequency: 0-2 drinks per day Patient Tobacco Use Status: Current someday Tobacco user Tobacco use type: Cigarette Smoked in Last 30 Days: Yes Use of substances other than those prescribed or required for medical reasons: Yes Substance Use Type: Marijuana Substance Use Frequency: Daily Advance Directives: No Advance Directives Information Provided: Yes Do you have a plan to hurt others: No Plan Gender identity: Female Physical Exam ED Vital Signs: Vital Signs - 24 hr 02/03/25 21:37 02/03/25 22:34 Temperature 97.9 F 98.8 F Pulse Rate 117 H 85 Respiratory Rate 20 20 Blood Pressure 122/73 103/60 Pulse Oximetry 99 98 Oxygen Delivery Method Room Air Room Air BMI result Body Mass Index 25.2 Appearance: Alert. Oriented X3. anxious in pain, mild acute distress. Eyes: Pupils equal, round and reactive to light. ENT: Pharynx normal. Neck: Normal inspection. Neck supple. CVS: tachycardic heart rate and rhythm. Pulses normal. Respiratory: No respiratory distress. Breath sounds normal. Abdomen: Soft and moderate epigastric ttp no rebound Skin: Skin warm and dry. Normal skin color. Normal skin turgor. Extremities: No lower extremity edema. No calf ttp Neuro: Oriented X 3. No motor deficit. No sensory deficit. CN2-12 intact Procedures Procedure Narrative Procedure Narrative: EMERGENCY ULTRASOUND? INTERPRETATION-Limited Abdominal (Biliary)? The study reveals: Impression: NO OF ACUTE BILIARY PATHOLOGY Indication: ABDOMINAL PAIN? Gallbladder: No stones? Anterior Gallbladder Wall: <4mm, No pericholecystic fluid or edema. CBD: NO EVIDENCE OF OBSTRUCTION/DILATION OR VISUALIZED STONE Performed by: NURA Date:02/03/25 Time: 1127pm CPT: 08061; Reference Codes? [email or web address] Course Course Course Narrative: feels better but having anxiety now I did offer oral ativan on DC she agrees mom to drive her home Medical Decision Making Medical Decision Making [facility] Narrative: 34 yo female with PMH of anxiety here with abrupt onset upper abdominal pain n/v/d and not feeling well - she has no risk factors, no fevers and no bloody stools at this time will need labs, IVF and IV supportive medications. Suspect gastritis, viral syndrome, biliary colic, pancreatitis Differential Diagnosis Differential Diagnoses: The differential diagnosis associated with the presentation includes gastritis, viral syndrome, biliary colic, pancreatitis Admission/Observation Consideration of admission/observation: Escalation of care including admission/observation considered labs reassuring bedside US shows no GB wall pathology and no stones she is feeling much better no v/d no diarrhea she still had some cramps given bentyl and kept it down, IV morphine feels much better stable for DC Lab Data [facility] Lab Attestation statement: I reviewed the patient's lab results. normal labs, neg CRP 02/03/25 21:48 02/03/25 21:48 Labs: Lab Results 02/03/25 Range/Units 21:48 WBC 10.5 (4.8-10.8) X10*3/uL RBC 4.38 (4.20-5.50) X10*6/uL Hgb 13.9 (12.0-16.0) g/dl Hct 38.7 (37.0-47.0) % MCV 88.4 (80.0-98.0) fL MCH 31.7 (27.0-33.0) pg MCHC 35.9 H (31.0-35.0) g/dl RDW 12.0 (11.0-16.0) % Plt Count 360 (160-400) X10*3/uL MPV 9.7 (9.4-12.3) fL Immature Gran % (Auto) 0.3 (0.0-0.4) % Neut % (Auto) 81.0 H (45-73) % Lymph % (Auto) 10.0 L (20-40) % [place] % (Auto) 7.1 (2-11) % Eos % (Auto) 1.0 (0-4) % Baso % (Auto) 0.6 (0-2) % Lymph # (Auto) 1.1 L (1.2-4.9) X10*3/uL [place] # (Auto) 0.8 (0.1-1.2) X10*3/uL Eos # (Auto) 0.1 (0.0-0.4) X10*3/uL Baso # (Auto) 0.1 (0.0-0.2) X10*3/uL Abs Immat Gran (auto) 0.03 (0.00-0.03) X10*3/uL Absolute Neuts (auto) 8.5 H (2.0-8.3) x10*3/uL Absolute Nucleated RBC 0.000 (0.0-0.012) X10*3/uL Nucleated RBC % (auto) 0.0 (0.0-0.2) /100WBC Sodium 141 (135-145) mmol/L Potassium 3.8 (3.3-5.1) mmol/L Chloride 104 (96-108) mmol/L Carbon Dioxide 21 L (22-29) mmol/L Anion Gap 20 (12-20) BUN 14 (9-16) mg/dL Creatinine 0.71 (0.5-1.4) mg/dL Estim Creat Clear Calc 97.1 Estimated GFR > 60 Random Glucose 125 H (60-115) mg/dL Calcium 9.7 (8.4-10.2) mg/dL Total Bilirubin 0.8 (0.0-1.0) mg/dL Direct Bilirubin 0.3 (0.0-0.5) mg/dL AST 23 (5-31) U/L ALT 11 (0-31) U/L Alkaline Phosphatase 50 (39-117) U/L C-Reactive Protein 0.25 (< or = 0.50) mg/dL Total Protein 7.5 (6.5-8.0) g/dL Albumin 4.9 (3.5-5.0) g/dL Lipase 19 (8-78) U/L Beta HCG, Quant < 2 mIU/mL External Record Review External record reviewed: Outpatient record Prescription Management I considered prescription management with: Other Medications Administered Discontinued Medications Generic Name Dose Route Start Last Admin Trade Name Freq PRN Reason Stop Dose Admin Diazepam 2.5 mg 02/03/25 22:04 02/03/25 22:30 Diazepam 10 Mg/2 Ml Cartridge IVPUSH 02/03/25 22:05 2.5 mg STAT STA Administration Dicyclomine HCl 10 mg 02/04/25 00:21 02/04/25 00:49 Dicyclomine Hcl 10 Mg Capsule PO 02/04/25 00:22 10 mg ONCE ONE Administration Lactated Ringer's 1,000 mls @ 999 mls/hr 02/03/25 22:04 02/03/25 23:49 Lr IV 02/03/25 23:04 Infused .Q1H1M ONE Infusion Ketorolac Tromethamine 15 mg 02/03/25 22:04 02/03/25 22:28 Ketorolac Tromethamine 15 Mg/Ml Vial IVPUSH 02/03/25 22:05 15 mg ONCE ONE Administration Morphine Sulfate 4 mg 02/04/25 00:21 02/04/25 00:49 Morphine Sulfate 4 Mg/Ml Cartridge IVPUSH 02/04/25 00:22 4 mg ONCE ONE Administration Protocol Ondansetron HCl 4 mg 02/03/25 22:04 02/03/25 22:28 Ondansetron Hcl 4 Mg/2 Ml Vial IVPUSH 02/03/25 22:05 4 mg ONCE ONE Administration Critical Care Time Critical Care Time Critical Care Time: Yes Total Critical Care Time: 45 Attestation: repeat IV medications for anxiety and IV morphine for pain - with improvement in pain, review of records, lab interpretation I attest to this time spent taking care of the patient Discharge Plan Discharge Clinical Impression: Abdominal pain Qualifiers: Abdominal location: generalized Qualified Code(s): R10.84 - Generalized abdominal pain Nausea & vomiting Qualifiers: Vomiting type: unspecified Qualified Code(s): R11.2 - Nausea with vomiting, unspecified Diarrhea Qualifiers: Diarrhea type: unspecified type Qualified Code(s): R19.7 - Diarrhea, unspecified Patient Disposition: Home, Self-Care Instructions: Acute Nausea and Vomiting (ED), Acute Diarrhea (ED), Abdominal Pain (ED) Additional Instructions: labs and urine reassuring blood counts, pancreas labs, liver panel, kidney function please rest and stay hydrated clear liquids for 24 hours return for worsening pain, unable to eat or drink or any other concerns. Prescriptions: New famotidine [Pepcid] 20 mg tablet 20 mg PO DAILY PRN (Reason: abdominal discomfort) Qty: 30 0RF ondansetron 4 mg tablet,disintegrating 4 mg PO Q8H PRN (Reason: nausea and vomiting) Qty: 20 0RF lorazepam [Ativan] 1 mg tablet 1 mg PO BID PRN (Reason: nausea and vomiting) Qty: 6 0RF No Action hydroxyzine HCl 50 mg tablet 50 mg PO Q8H PRN (Reason: anxiety) Qty: 30 0RF ibuprofen PRN (Reason: Pain) Stand Alone Forms: Work/School Release Print Language: Vietnamese
[2025-02-03 21:57] LABS: Basophils Absolute Auto 0.1 X10*3/uL (0.0-0.2); Basophils Percent Auto 0.6 % (0-2); Eosinophils Absolute Auto 0.1 X10*3/uL (0.0-0.4); Hematocrit 38.7 % (37.0-47.0); Hemoglobin 13.9 g/dl (12.0-16.0); Imm Gran Abs Auto 0.03 X10*3/uL (0.00-0.03); Imm Gran Pct Auto 0.3 % (0.0-0.4); Lymphocytes Absolute Auto 1.1 X10*3/uL (1.2-4.9); Mean Corpuscular HGB Conc 35.9 g/dl (31.0-35.0); Mean Corpuscular Hemoglobin 31.7 pg (27.0-33.0); Mean Corpuscular Volume 88.4 fL (80.0-98.0); Mean Platelet Volume 9.7 fL (9.4-12.3); Monocytes Absolute Auto 0.8 X10*3/uL (0.1-1.2); Monocytes Percent Auto 7.1 % (2-11); Neutrophils Absolute Auto 8.5 x10*3/uL (2.0-8.3); Platelet Count 360 X10*3/uL (160-400); Red Blood Count 4.38 X10*6/uL (4.20-5.50); White Blood Count 10.5 X10*3/uL (4.8-10.8)
[2025-02-03 22:10] LABS: Alanine Aminotransferase 11 U/L (0-31); Albumin Level 4.9 g/dL (3.5-5.0); Alkaline Phosphatase 50 U/L (39-117); Anion Gap 20 (12-20); Aspartate Amino Transferase 23 U/L (5-31); Bilirubin Direct 0.3 mg/dL (0.0-0.5); Bilirubin Total 0.8 mg/dL (0.0-1.0); Blood Urea Nitrogen 14 mg/dL (9-16); Calcium 9.7 mg/dL (8.4-10.2); Carbon Dioxide 21 mmol/L (22-29); Chloride 104 mmol/L (96-108); Creatinine Clr Calc Pharmacy 97.1; Estimated Glomerular Filt Rate > 60; Glucose Random 125 mg/dL (60-115); Lipase 19 U/L (8-78); Potassium 3.8 mmol/L (3.3-5.1); Sodium 141 mmol/L (135-145); Total Protein 7.5 g/dL (6.5-8.0)
[2025-02-03] MEDS: ondansetron HCL 4 MG/2 ML VIAL IVPUSH (22:28)
[2025-02-03] MEDS: Ketorolac Tromethamine 15 MG/ML VIAL IVPUSH (22:28)
[2025-02-03] MEDS: diazePAM 10 MG/2 ML CARTRIDGE 2.5 MG IVPUSH (22:30)
[2025-02-03] MEDS: Lactated Ringers 1,000 ML 999 ML IV (22:31)
[2025-02-03 22:34] VITALS: BP 103/60; PULSE 85; RESP 20; TEMP 37.1; O2SAT 98
[2025-02-03 23:34] LABS: HCG Quantitative < 2 mIU/mL
[2025-02-04 00:40] LABS: C Reactive Protein 0.25 mg/dL (< or = 0.50)
[2025-02-04] MEDS: Morphine Sulfate 4 MG/ML CARTRIDGE IVPUSH (00:49)
[2025-02-04] MEDS: Dicyclomine HCl 10 MG CAPSULE PO (00:49)
[2025-02-04] MEDS: LORazepam 1 MG TABLET PO (01:21)
[2025-02-04] MEDS: ondansetron HCL 4 MG/2 ML VIAL IVPUSH (01:43)
[2025-02-04] MEDS: diazePAM 10 MG/2 ML CARTRIDGE 5 MG IVPUSH (01:44)
--- NOTE | 2025-02-04 02:46 | PC.NURSE ---
pt drinking water at this time, feels good. denies nausea
[2025-02-04 03:18] VITALS: BP 95/64; PULSE 88; RESP 16; TEMP 36.4; O2SAT 98
== END 2025-02-04 03:20 | disposition home or self-care (01) ==
PROVIDERS: Emergency Provider Emergency Medicine; PCP Internal Medicine Medical Oncology
DX: R10.84 Generalized abdominal pain (principal); R11.2 Nausea with vomiting, unspecified; R19.7 Diarrhea, unspecified; F41.0 Panic disorder [episodic paroxysmal anxiety]; F41.9 Anxiety disorder, unspecified; F12.90 Cannabis use, unspecified, uncomplicated; F17.210 Nicotine dependence, cigarettes, uncomplicated; Z79.899 Other long term (current) drug therapy
CPT/HCPCS: 36415; 80053; 82248; 83690; 84702; 85025; 86140; 96361; 96374; 96375; 96376; 99284; J1885; J2270; J2405; J3360; J7120

== ENCOUNTER 2025-02-15 07:51 | Outpatient (REF) | payer OTHER, SELFPAY | END 2025-02-15 07:52 | disposition home or self-care (01) | LOC: HO.SH 07:51 | PROVIDERS: Visit Provider Internal Medicine Medical Oncology | DX: Z01.118 Encounter for examination of ears and hearing with other abnormal findings (principal); H93.293 Other abnormal auditory perceptions, bilateral | CPT/HCPCS: 92557; 92567; 92588 ==

== ENCOUNTER 2025-07-30 12:45 | Emergency (ER) | payer OTHER, SELFPAY ==
--- NOTE | ~2025-07-30 | XR_ITS ---
CLINICAL HISTORY: injury 2 view left forearm Comparison: None provided Findings: No fractures or dislocations. No joint effusion. Nodular trabecular pattern versus small bone island in the distal radius. No radiopaque foreign body. IMPRESSION: No acute fracture. This document has been electronically signed by: Charley Lee DO on 07/30/2025 14:10:02
--- NOTE | 2025-07-30 13:15 | ED.GENADULT ---
HPI - General Adult General Chief complaint: Animal Bite Stated complaint: bit by a cat w/ no shots Time Seen by Provider: 07/30/25 15:47 Source: patient and family Mode of arrival: ambulatory Limitations: no limitations History of Present Illness ED Provider: Gabby Ac APRN HPI narrative: 34 year old female who is right-hand dominant who is healthy and is up-to-date with her immunizations presents the ER with complaints of cat bite to the left wrist which occurred last evening. This was from a friend's unvaccinated rescue cat. over the night she started to develop pain with redness and swelling. She denies fevers, chills, numbness, tingling. Related Data Home Medications ?Medication ?Instructions ?Recorded ?Confirmed ibuprofen PRN Pain 10/28/23 Previous Rx's ?Medication ?Instructions ?Recorded hydroxyzine HCl 50 mg tablet 50 mg PO Q8H PRN anxiety #30 tabs 05/23/24 famotidine 20 mg tablet (Pepcid) 20 mg PO DAILY PRN abdominal 02/04/25 discomfort #30 tabs lorazepam 1 mg tablet (Ativan) 1 mg PO BID PRN nausea and 02/04/25 vomiting #6 tabs ondansetron 4 mg disintegrating 4 mg PO Q8H PRN nausea and 02/04/25 tablet vomiting #20 tabs amoxicillin 875 mg-potassium 1 tab PO BID #14 tabs 07/30/25 clavulanate 125 mg tablet ibuprofen 600 mg tablet 600 mg PO Q6H PRN pain #30 tabs 07/30/25 oxycodone 5 mg tablet 5 mg PO Q8H PRN pain #9 tabs 07/30/25 Allergies Allergy/AdvReac Type Severity Reaction Status Date / Time No Known Allergies Allergy Verified 07/30/25 13:18 Review of Systems Review of Systems: Yes all other systems are reviewed and are negative Constitutional: Constitutional: Reports no additional constitutional complaints, Denies body ache(s), Denies chills, Denies fever(s), Denies headache(s) and Denies weakness Eyes: Eyes: Reports no additional eye complaints and Denies change in vision ENT: Reports system reviewed and no additional complaints, except as documented, Denies dizziness, Denies headache(s), Denies nasal congestion, Denies nasal discharge and Denies neck pain Cardiovascular: Cardiovascular: Reports no additional cardiovascular complaints, Denies chest pain, Denies leg edema and Denies dyspnea Respiratory: Respiratory: Reports no additional respiratory complaints, Denies cough and Denies dyspnea Gastrointestinal: Gastrointestinal: Reports no additional gastrointestinal complaints, Denies abdominal pain, Denies diarrhea, Denies nausea and Denies vomiting Genitourinary: Genitourinary: Reports no additional female genitourinary complaints and Denies urinary incontinence Musculoskeletal: Musculoskeletal: Reports no additional musculoskeletal complaints, Denies back pain, Denies arthralgias, Denies joint swelling, Denies neck pain, Denies numbness and Denies tingling Integumentary/Breasts: Skin/Breast: Reports system reviewed and no additional complaints, except as docu, Reports swelling, Reports erythema and Denies rash Neurologic: Reports system reviewed and no additional complaints, except as documented, Denies Abnormal speech present, Denies dizziness, Denies headache(s), Denies numbness, Denies tingling and Denies weakness PMFSH Past Medical History Attestation statement: The following information was validated with the patient. Source: old records reviewed and nursing notes reviewed Medical History No known health problems Surgical History History of loop electrical excision procedure (LEEP) Hx of arthroscopy of left knee Family History Family History Maternal Grandmother Heart disease Social History Social History Alcohol intake: current Alcohol intake frequency: 0-2 drinks per day Patient Tobacco Use Status: Current someday Tobacco user Tobacco use type: Cigarette Substance Use Type: Marijuana Advance Directives: No Advance Directives Information Provided: No Gender identity: Female Physical Exam ED Vital Signs: Vital Signs - 24 hr 07/30/25 13:17 07/30/25 16:34 Temperature 98.0 F 97.7 F Pulse Rate 85 76 Respiratory Rate 18 20 Blood Pressure 166/72 H 114/70 Pulse Oximetry 97 99 Oxygen Delivery Method Room Air Room Air BMI result Body Mass Index 25.4 Const General: cooperative, healthy appearing, comfortable and no acute distress Orientation/consciousness: patient oriented x3 Limitations: no limitations HENMT Head: Yes normal to inspection Ears: hearing grossly normal bilaterally General nose exam: Normal external nose present Face and sinus: Yes normal facial exam Mouth: Normal oral and palatal mucosa present Throat: Yes posterior oropharynx normal Eyes General: appearance normal, both eyes and all related structures Pupils: Equal, round and reactive pupils present Neck Neck: Yes normal visual inspection Chest Chest palpation & inspection: normal inspection of the chest Resp Effort & Inspection: normal respiratory effort Auscultation: clear to auscultation bilaterally Cardio Rate: regular rate Rhythm: regular rhythm Peripheral pulses: Peripheral pulses 2+ throughout GI Inspection: Yes normal to inspection Palpation (GI): Soft to palpation and nontender Auscultation: normal bowel sounds Back/Spine/Pelvis Thoracic/Lumbar Spine: thoracic and lumbar spine normal to inspection Skin General skin exam: no rashes or lesions noted Neuro General: patient oriented x3, no focal motor deficits and normal sensation to monofilament Cranial nerves: Yes Equal, round and reactive pupils present Cognition (Neuro): normal cognition Speech: No Abnormal speech present Gait exam (Neuro): Normal gait present Motor exam (neuro): 5/5 motor strength present throughout Extrem Other: Full active/passive ROM of hand Pain with active hyperextension of wrist but patient able. Able to flex with no difficulty +pulses, +sensation Course Course Course Narrative: Rapid medical examination performed in triage by Susan Olivera PA-C: Patient is a 34 year old assigned female at presenting to the emergency department with left forearm pain after a cat bite. Patient states that she was bit by a cat last night and is having increased pain. Patient states that the cat is not up to date on any of it's shots. Patient is up to date on tetanus. Detailed physical exam and review of systems are deferred to the industrial relations analyst. Labs and imaging ordered. Patient placed back in the waiting room pending room availability and results. Reevaluation(s) Reevaluation #1: Pain is improved after analgesia. I then infiltrated 4ml of rabies antigen into the puncture sites, provided wound care and wrapped the area. we discussed strict return precautions. Patient is comfortable plan of care Medications Administered Discontinued Medications Generic Name Dose Route Start Last Admin Trade Name Freq PRN Reason Stop Dose Admin Acetaminophen 975 mg 07/30/25 16:12 07/30/25 16:36 Acetaminophen 325 Mg Tablet PO 07/30/25 16:13 975 mg ONCE ONE Administration Amoxicillin/Clavulanate Potassium 875 mg 07/30/25 16:12 07/30/25 16:36 Amoxicillin/Potassium Clav 875 Mg Tablet PO 07/30/25 16:13 875 mg ONCE ONE Administration Ibuprofen 600 mg 07/30/25 16:12 07/30/25 16:36 Ibuprofen 600 Mg Tablet PO 07/30/25 16:13 600 mg ONCE ONE Administration Oxycodone HCl 5 mg 07/30/25 16:12 07/30/25 16:36 Oxycodone Hcl Immed Release 5 Mg Tablet PO 07/30/25 16:13 5 mg ONCE ONE Administration Rabies Immune Globulin 1,258 unit 07/30/25 16:12 07/30/25 16:38 Rabies Immune Globulin/Pf 1,500 Unit/5 Ml Vial 20 unit/kg (1258 unit) 07/30/25 16:13 1,258 unit IM Administration ONCE ONE Rabies Vaccine 1 ml 07/30/25 16:12 07/30/25 16:37 Rabies Vaccine (Pcec)/Pf 1 Ml Vial IM 07/30/25 16:13 1 ml .ONCE ONE Administration Medical Decision Making Medical Decision Making [facility] Narrative: 34 year old female who is right-hand dominant who is healthy and is up-to-date with her immunizations presents the ER with complaints of cat bite to the left wrist which occurred last evening. This was from a friend's unvaccinated rescue cat. over the night she started to develop pain with redness and swelling. She denies fevers, chills, numbness, tingling. Full active/passive ROM of hand Pain with active hyperextension of wrist but patient able. Able to flex with no difficulty +pulses, +sensation Non circumferential cellulitis on exam. Patient washed last night with soap and water. She will need rabies IGG and vaccine, analgesia and antibiotics Differential Diagnosis Differential Diagnoses: The differential diagnosis associated with the presentation includes cellulitis low suspicion for tenosynovitis, retained foreign body, necrotizing fasciitis Admission/Observation Consideration of admission/observation: Escalation of care including admission/observation considered non circumferential cellulitis in a patient that is nontoxic and not immunocompromised who can go home on oral antibiotics Lab Data [facility] Lab Attestation statement: I reviewed the patient's lab results. 07/30/25 13:58 07/30/25 13:58 Labs: Lab Results 07/30/25 Range/Units 13:58 WBC 6.4 (4.8-10.8) X10*3/uL RBC 4.31 (4.20-5.50) X10*6/uL Hgb 13.4 (12.0-16.0) g/dl Hct 38.1 (37.0-47.0) % MCV 88.4 (80.0-98.0) fL MCH 31.1 (27.0-33.0) pg MCHC 35.2 H (31.0-35.0) g/dl RDW 11.9 (11.0-16.0) % Plt Count 311 (160-400) X10*3/uL MPV 10.0 (9.4-12.3) fL Immature Gran % (Auto) 0.2 (0.0-0.4) % Neut % (Auto) 63.4 (45-73) % Lymph % (Auto) 27.7 (20-40) % [place] % (Auto) 7.0 (2-11) % Eos % (Auto) 1.1 (0-4) % Baso % (Auto) 0.6 (0-2) % Lymph # (Auto) 1.8 (1.2-4.9) X10*3/uL [place] # (Auto) 0.5 (0.1-1.2) X10*3/uL Eos # (Auto) 0.1 (0.0-0.4) X10*3/uL Baso # (Auto) 0.0 (0.0-0.2) X10*3/uL Abs Immat Gran (auto) 0.01 (0.00-0.03) X10*3/uL Absolute Neuts (auto) 4.1 (2.0-8.3) x10*3/uL Absolute Nucleated RBC 0.000 (0.0-0.012) X10*3/uL Nucleated RBC % (auto) 0.0 (0.0-0.2) /100WBC ESR 10 (0-20) MM/HR Sodium 140 (135-145) mmol/L Potassium 3.6 (3.3-5.1) mmol/L Chloride 109 H (96-108) mmol/L Carbon Dioxide 20 L (22-29) mmol/L Anion Gap 15 (12-20) BUN 11 (9-16) mg/dL Creatinine 0.64 (0.5-1.4) mg/dL Estim Creat Clear Calc 108.0 Estimated GFR > 60 Random Glucose 98 (60-115) mg/dL Calcium 10.0 (8.4-10.2) mg/dL Total Bilirubin 0.7 (0.0-1.0) mg/dL AST 22 (5-31) U/L ALT 16 (0-31) U/L Alkaline Phosphatase 49 (39-117) U/L C-Reactive Protein 0.21 (< or = 0.50) mg/dL Total Protein 8.0 (6.5-8.0) g/dL Albumin 5.3 H (3.5-5.0) g/dL Hold Red Top See Note Independent Interpretation I performed an independent interpretation of an: Plain X-Ray Interpretation: I independently viewed the x-ray and agree with the radiology report Radiology Impression Discussion of test interpretation with radiology: I have reviewed the radiologist's reading. Radiologist Impression: [place] [id number] XRay Report Signed Patient: Molly Gold MR#: [id number] : 1990 Acct:[id number] Age/Sex: 34 / F ADM Date: 07/30/25 Loc: .ED Attending Dr: Ordering Physician: Susan Olivera Date of Service: 07/30/25 Procedure(s): XR forearm LT 2V Accession Number(s): [id number] cc: Dustin Maguire MD; Susan Olivera~ Reason for Exam: injury CLINICAL HISTORY: injury 2 view left forearm Comparison: None provided Findings: No fractures or dislocations. No joint effusion. Nodular trabecular pattern versus small bone island in the distal radius. No radiopaque foreign body. IMPRESSION: No acute fracture. This document has been electronically signed by: Charley Lee DO on 07/30/2025 14:10:02 Independent Historian Clinical information obtained from an independent historian. History obtained from or confirmed by: EMS Discharge Plan Discharge Clinical Impression: Cat bite Patient Disposition: Home, Self-Care Instructions: Animal Bite (ED) Additional Instructions: Rabies follow up with the [facility] Infusion Center: Upon discharge from the ED today, you will be contacted by the Infusion Center to schedule your follow up Rabies vaccines. You will need a total of 3 more injections. If for some reason you do not receive a call, please call the Infusion Center directly at [phone]. Follow up with your primary care provider after completion of the vaccine to have a titer drawn to ensure the vaccines effectiveness. return to the emergency room for increasing swelling, redness, pain, streaking up the arm or fever take medications as prescribed Prescriptions: New amoxicillin-pot clavulanate 875-125 mg tablet 1 tab PO BID Qty: 14 0RF ibuprofen 600 mg tablet 600 mg PO Q6H PRN (Reason: pain) Qty: 30 0RF oxycodone 5 mg tablet 5 mg PO Q8H PRN (Reason: pain) Qty: 9 0RF Rx Instructions: Partial Fill upon patient request. No Action hydroxyzine HCl 50 mg tablet 50 mg PO Q8H PRN (Reason: anxiety) Qty: 30 0RF ibuprofen PRN (Reason: Pain) famotidine [Pepcid] 20 mg tablet 20 mg PO DAILY PRN (Reason: abdominal discomfort) Qty: 30 0RF ondansetron 4 mg tablet,disintegrating 4 mg PO Q8H PRN (Reason: nausea and vomiting) Qty: 20 0RF lorazepam [Ativan] 1 mg tablet 1 mg PO BID PRN (Reason: nausea and vomiting) Qty: 6 0RF Referrals: Dustin Maguire MD [Primary Care Provider, Internal Medicine] Stand Alone Forms: Work/School Release Discharge Date/Time: 07/30/25 17:40 Print Language: Yoruba
[2025-07-30 13:17] VITALS: BP 166/72; PULSE 85; RESP 18; TEMP 36.7; O2SAT 97; BMI 25.4
[2025-07-30 14:13] LABS: MANUAL DIFF FLAG NO
[2025-07-30 14:26] LABS: Hematocrit 38.1 % (37.0-47.0); Hemoglobin 13.4 g/dl (12.0-16.0); Imm Gran Abs Auto 0.01 X10*3/uL (0.00-0.03); Imm Gran Pct Auto 0.2 % (0.0-0.4); Lymphocytes Absolute Auto 1.8 X10*3/uL (1.2-4.9); Mean Corpuscular HGB Conc 35.2 g/dl (31.0-35.0); Mean Corpuscular Hemoglobin 31.1 pg (27.0-33.0); Mean Corpuscular Volume 88.4 fL (80.0-98.0); NRBC Abs Auto 0.000 X10*3/uL (0.0-0.012); NRBC Pct Auto 0.0 /100WBC (0.0-0.2); Platelet Count 311 X10*3/uL (160-400); Red Blood Count 4.31 X10*6/uL (4.20-5.50); White Blood Count 6.4 X10*3/uL (4.8-10.8)
[2025-07-30 14:33] LABS: Alanine Aminotransferase 16 U/L (0-31); Albumin Level 5.3 g/dL (3.5-5.0); Alkaline Phosphatase 49 U/L (39-117); Anion Gap 15 (12-20); Aspartate Amino Transferase 22 U/L (5-31); Blood Urea Nitrogen 11 mg/dL (9-16); Calcium 10.0 mg/dL (8.4-10.2); Carbon Dioxide 20 mmol/L (22-29); Chloride 109 mmol/L (96-108); Creatinine Clr Calc Pharmacy 108.0; Estimated Glomerular Filt Rate > 60; Potassium 3.6 mmol/L (3.3-5.1); Sodium 140 mmol/L (135-145); Total Protein 8.0 g/dL (6.5-8.0)
[2025-07-30 16:34] VITALS: BP 114/70; PULSE 76; RESP 20; TEMP 36.5; O2SAT 99
[2025-07-30] MEDS: oxyCODONE HCl Immed Release 5 MG TABLET PO (16:36)
--- NOTE | 2025-07-30 16:36 | PC.NURSE ---
patient refusing to give info on animal. 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
[2025-07-30] MEDS: Rabies Vaccine (PCEC)/PF 1 ML VIAL IM (16:37)
== END 2025-07-30 17:40 | disposition home or self-care (01) ==
PROVIDERS: Physician Assistant Medical; Emergency Provider Emergency Medicine Emergency Medical Services; PCP Internal Medicine Medical Oncology
DX: S61.552A Open bite of left wrist, initial encounter (principal); M25.532 Pain in left wrist; F17.210 Nicotine dependence, cigarettes, uncomplicated; W55.01XA Bitten by cat, initial encounter; Y93.9 Activity, unspecified; Y92.9 Unspecified place or not applicable; Y99.8 Other external cause status; Z23 Encounter for immunization; Z20.3 Contact with and (suspected) exposure to rabies; Z29.14 Encounter for prophylactic rabies immune globulin; Z79.899 Other long term (current) drug therapy
CPT/HCPCS: 36415; 73090; 80053; 85025; 85652; 86140; 87040; 90375; 90471; 90472; 90675; 96372; 99283; 99284

== ENCOUNTER → 2025-07-30 13:17 | Outpatient (BNV) | payer OTHER, SELFPAY | PROVIDERS: PCP Internal Medicine Medical Oncology; Visit Provider Radiology Diagnostic Radiology | DX: S59.912A Unspecified injury of left forearm, initial encounter (principal) | CPT/HCPCS: 73090 ==

== ENCOUNTER 2025-08-14 08:00 | Outpatient (RCR) | payer OTHER, SELFPAY ==
[2025-08-03] MEDS: Rabies Vaccine (PCEC)/PF 1 ML VIAL IM (10:14)
[2025-08-07 08:01] VITALS: BP 112/76; PULSE 76; RESP 16; TEMP 36.6; O2SAT 98
[2025-08-07] MEDS: Rabies Vaccine (PCEC)/PF 1 ML VIAL IM (08:03)
[2025-08-14 07:57] VITALS: BP 112/73; PULSE 99; RESP 16; TEMP 36.7; O2SAT 100
[2025-08-14] MEDS: Rabies Vaccine (PCEC)/PF 1 ML VIAL IM (08:01)
== END 2025-08-14 08:03 | disposition home or self-care (01) ==
LOC: HO.INF 08:00
PROVIDERS: Visit Provider Nurse Practitioner Family
DX: Z20.3 Contact with and (suspected) exposure to rabies (principal); T14.8XXD Other injury of unspecified body region, subsequent encounter; W55.01XD Bitten by cat, subsequent encounter
CPT/HCPCS: 90471; 90675